=== PATIENT | male | born 1950 | race Caucasian/White ===

== ENCOUNTER 2016-08-14 15:16 | Day surgery (SDC) | payer MEDICARE ==
[~2016-08-14] VITALS: Ht 175.3 cm; Wt 102.0 kg
[~2016-08-14 15:16] MED LIST: ASPI-973 PO; ATOR40TA69 PO; CHOL200025 PO; CLOP75TA28 PO; GLUC1500 PO; INSU100C8 SUBQ; INSU100I13 SUBQ; LISI10TA PO; METO-272 PO; MULT1CAP33 PO; OMEG-38 PO; PSYL1PAC10 PO; RIFA300C4 PO; augmentin
[2016-08-14 15:20] VITALS: BP 145/78; PULSE 72; RESP 18; O2SAT 99
[2016-08-14] MEDS ORDERED: Vancomycin Inj 1,500 MG in 0.9% Sodium Chloride 500 ML IV ONE (16:00)
--- NOTE | 2016-08-14 18:25 | NUR ---
first dose IVAB pt arrived post picc placement IV vanco infused without problem pt to receive future infusions via home services baseline labs drawn on 08/12 pt with hx of picc line and home infusions; aware of plan of care and denies questions or concerns
== END 2016-08-14 23:59 | disposition home or self-care (01) ==
LOC: MOCO 15:16
PROVIDERS: ATTEND Podiatrist
DX: M86.172 Other acute osteomyelitis, left ankle and foot (principal)
CPT/HCPCS: 96365; J3370; J7040

== ENCOUNTER 2017-01-09 17:35 | Inpatient (IN) | payer MEDICARE, OTHER ==
[~2017-01-09] VITALS: Ht 175.3 cm; Wt 92.6 kg
[2017-01-09] MEDS ORDERED: Alum-Mag Hydrox-Simeth 30 mL Suspension PO PRN (17:50)
[2017-01-09] MEDS ORDERED: Ondansetron 2 mg/mL 2 mL Inj IVPUSH PRN (17:50)
[2017-01-09] MEDS ORDERED: Polyethylene Glycol (PEG) 17 Gm Powder PO PRN (17:50)
[2017-01-09] MEDS ORDERED: Glucose 40% Oral Gel 15 Gm Tube PO PRN (17:50)
[2017-01-09] MEDS ORDERED: Piper-Tazo 3.375 Gm/50 mL D5W Minibag Plus - Q8H over 4 hrs IV ONE ×2 (18:05)
--- NOTE | 2017-01-09 18:05 | PCM.HPMED ---
Subjective Date of Service Jan 09, 2017 Primary Provider: Admitting Physician: Yari Aviles DPM Primary Care Physician: Maria Diana DO Attending Physician: Yari Aviles DPM Admit Status: Direct Admit, Admit to [facility] Team, Non-Telemetry Chief Complaint: Left foot gangrene and soft tissue infection History of Present Illness: This is a pleasant 66-year-old male with a history of diabetes who presents with an extensive soft tissue infection of the left foot. He has been fighting this for 2 years since he initially stepped on a nail which punctured his big toe. He has been on intermittent antibiotics and had multiple debridements in the past with his collaborative teacher. Ultimately this infection is spread across the entire span of the foot. Today he has had more redness laterally. He does have gangrene of the great toe and second toe from his report. He was seen by his collaborative teacher today who recommended hospitalization for an emergent transmetatarsal amputation of the left foot. He does not have peripheral arterial disease and has good transcutaneous oximetry. He denies fevers or chills. His collaborative teacher did request Zosyn in the interim. He does have some pain associated with this. He does have diabetes mellitus U, insulin-dependent which has been under reasonable control. No nausea. He has been somewhat constipated for 3 days. He did have global symptoms of myalgias and fatigue several days ago with see off for infection. These symptoms improved. Review of Systems: All else reviewed and otherwise negative except as noted on history of present illness Allergies Coded Allergies: No Known Allergies (Verified , 01/09/17) Home Medications Lantus 25 at bedtime, lispro 20-25 before meals PMH Diabetes mellitus 2 Hypertension Left foot soft tissue skin infection, as well as osteomyelitis involving the first and second digit. Surgical History Multiple surgeries on his feet including a great toe amputation on the right foot. Multiple debridements on the left foot. Family History Negative for diabetes Social History Occupation: retired Hx Alcohol Use: No Hx Substance Use: No Smoking Status: Never Smoker Living Arrangement: Alone Exam Exam Oriented 3. No distress. Fluent speech. Normal affect. Normal skull. Normal nose and ears. Anicteric sclera, symmetric pupils Oropharynx is unremarkable, no facial droop. Neck is supple, normal thyroid. No adenopathy. Lungs are clear, normal effort rate. Heart is regular without murmur gallop or rub. Abdomen soft, nondistended or tender. Extremities are free of pedal edema. Good radial and pedal pulses.. The left foot is wrapped up to the ankle. There is no erythema above the ankle. The foot is left wrapped as it was examined and wrapped by his collaborative teacher this morning. Skin is free of rash, lesions. No petechiae or ecchymosis. Joints are grossly normal. Cranial nerves are grossly normal. Motor strength is normal in all extremities. Normal muscular tone. Assessment & Plan #. Left foot soft tissue infection as well as osteomyelitis, worsening. POA. The plan is to initiate Zosyn every 8 hours, nothing by mouth after midnight and proceed to a transmetatarsal amputation of the left foot tomorrow morning #. Diabetes mellitus 2, POA. We will decrease his Lantus to 15, nothing by mouth from midnight and use correctional lispro. We will also fluid resuscitated with saline. We will check a CBC and CMP. #. Hypertension, POA. Resume usual medications after medication reconciliation. Patient is admitted in observation status, anticipated length of stable for 2 nights. He is full resuscitation DVT prophylaxis Pain Evaluation: Adequate Pain Control Resuscitation Status: CPR: Attempt Resuscitation Time spent 40 minutes Giovanni Macdonald MD Jan 09, 2017 18:05
[2017-01-09 18:59] LABS: BASOPHILS % (AUTO) 0.1 % (0-3); EOSINOPHILS % (AUTO) 0.9 % (0-5); MONOCYTES % (AUTO) 6.6 % (4-12); Mean Corpuscular Hemoglobin 26.9 pg (27.0-35.0); Mean Corpuscular Volume 83.8 fL (81-100); NEUTROPHILS % (AUTO) 80.4 % (40-74); Platelet Count 464 bil/L (150-400)
[2017-01-09] MEDS: 0.9% Sodium Chloride 1,000 ML IV SCH (21:18)
[2017-01-09] MEDS: Insulin GLARgine 100 Unit/mL Syringe SUBQ SCH (21:36)
[2017-01-09] MEDS: Insulin LISPRO 300 Unit/3 mL Inj SUBQ SCH (21:38)
[2017-01-09] MEDS: Heparin 5,000 Unit/mL Inj SUBQ SCH (21:43)
[2017-01-10] VITALS (13 sets, daily range): BP systolic 109–148; BP diastolic 48–77; PULSE 67–79; RESP 16–22; O2SAT 97–99
[2017-01-10] MEDS: Heparin 5,000 Unit/mL Inj SUBQ SCH ×3 (00:30→17:13)
--- NOTE | 2017-01-10 02:59 | NUR ---
Admit to Room 1012 Per patient, patient arrived to Room 1012 at approximately 1700. No note from previous shift. Admission interventions not recorded. Admission completed. Patient cooperative with assessment . States no pain on left foot. VSS. Call light within reach. Care continues.
[2017-01-10] MEDS: 0.9% Sodium Chloride 1,000 ML IV SCH ×3 (03:48→23:48)
[2017-01-10] MEDS: Lactated Ringer's 1,000 ML IV SCH ×2 (05:00→08:53)
[2017-01-10] MEDS: Piperacillin-Tazo 3.375 Gm Inj 3.375 GM in Dextrose 5% Minibag Plus 50 ML IV SCH ×3 (05:11→20:58)
[2017-01-10] MEDS: Insulin LISPRO 300 Unit/3 mL Inj SUBQ SCH ×4 (08:12→20:59)
--- NOTE | 2017-01-10 09:01 | NUR ---
To OR Report given to ALEX lopez. Patient on room air. Able to transfer onto [facility] from bed. Antibiotic still running and went with patient to OR. Patient denies pain this AM.
[2017-01-10] MEDS ORDERED: EPHEDrine Sulfate 50 mg/mL Inj IVPUSH PRN (09:15)
[2017-01-10] MEDS ORDERED: Phenylephrine 10,000 mCg/mL Inj IVPUSH PRN (09:15)
[2017-01-10] MEDS ORDERED: Lactated Ringer's 1,000 ML IV SCH (09:15)
[2017-01-10] MEDS ORDERED: Lidocaine 2%-Epi 1:100,000 20 mL Inj INFILTRATE ONE (09:15)
[2017-01-10] MEDS ORDERED: Dexamethasone 4 mg/mL Inj IVPUSH PRN (09:15)
[2017-01-10] MEDS ORDERED: Lactated Ringer's 500 ML IV PRN (09:15)
[2017-01-10] MEDS ORDERED: MetoCLOpramide 5 mg/mL 2 mL Inj IVPUSH PRN (09:15)
[2017-01-10] MEDS ORDERED: Ondansetron 2 mg/mL 2 mL Inj IVPUSH PRN (09:15)
[2017-01-10] MEDS ORDERED: HYDROmorphone 1 mg/mL Inj IVPUSH PRN (09:15)
[2017-01-10] MEDS ORDERED: fentaNYL-PF 50 mCg/mL 2 mL Inj IVPUSH PRN (09:15)
--- NOTE | 2017-01-10 09:15 | PCM.HPANE ---
Patient Data Date of Service: Jan 10, 2017 (0845) Surgeon Admitting Provider:Bladimir Lloyd MD Attending Provider:Bladimir Lloyd MD Primary Care Physician:Maria Diana DO Other Provider:Reyes Kamara Anesthesia Reason for Visit Left Foot Gangrene, Diabetes Ht/WT & BMI Body Mass Index Allergies Coded Allergies: No Known Allergies (Verified , 01/09/17) Past Anesthesia History Anesthesia History: Denies:: Abnormal Airway, Anesthesia Reactions, Difficult Intubation, Fam Anesthesia Reaction (mother was "weird" after anes) Diabetes History Hx Diabetes?: Yes Glycemic Control: Insulin Dependent Current Bedside Blood Glucose: 223 MRSA MRSA: Yes (MSSA) Medications Blood Thinner: Aspirin, Plavix Reported Medications Aspirin 81 Mg Gnyums65 Mg PO BID Ref 0 04/04/15 Lisinopril 10 Mg Idulwr82 Mg PO DAILY 30 Days Ref 0 04/04/15 Multivitamin (Multivitamins)1 Each Capsule1 Each PO DAILY 04/04/15 [place]-3/Dha/Epa/Fish Oil (Fish Oil 1,000 mg Softgel)1 Each Capsule1 Each PO DAILY 04/04/15 Psyllium Seed (with Sugar) (Metamucil Packet)1 Each Packet1 Each PO DAILY PRN For Constipation 04/04/15 Cholecalciferol (Vitamin D3) (Vitamin D3)2,000 Unit Tablet2,000 Unit PO DAILY 01/25/15 Insulin Aspart (NovoLOG U100 Insulin Vial)100 U/Ml U10-15 SUBQ TIDWM #1 VIAL Ref 0 01/25/15 Metoprolol Succinate ER 50 Mg Tab.er.24h50 Mg PO DAILY 30 Days Ref 0 01/25/15 Insulin Glargine (Lantus U100 Solostar Insulin Pen)100 Unit/1 Ml Insuln.pen25 Units SUBQ HS #1 PENINJ Ref 0 01/25/15 Glucosamine HCl 1,500 Mg Tablet1,500 Mg PO DAILY 01/25/15 Clopidogrel 75 Mg Dvvsav05 Mg PO DAILY 30 Days Ref 0 01/25/15 Atorvastatin Calcium 40 Mg Bfcaim64 Mg PO DAILY #30 TABLET Ref 0 01/25/15 Discontinued Reported Medications [augmentin] No Conflict CheckUnknown Dose DAILY 07/17/16 Rifampin 300 Mg Cptnkof228 Mg PO BID 10 Days 08/17/15 History History of ENT Problems?: No HEENT History: Positive for:: Cataracts Glaucoma Denies:: Abnormal Airway Difficult Intubation Dysphagia Hearing Problem Sinus Problem TMJ Denture Type: None Teeth Condition: Within Normal Limits Hx of Heart Problems?: Yes Cardiovascular History: Denies:: AICD Abdominal Aortic Aneurism Atrial Fibrillation Cardiac Surgery Chest Pain Congestive Heart Failure Edema Heart Murmur Hypertension Irregular Heartbeat Pacemaker Rheumatic Fever Thrombophlebitis Other Cardiac History: Right ankle artery Hx of Respiratory Problem?: No Respiratory History: Denies:: Asthma COPD Chest Surgery Dyspnea Emphysema Hemoptysis Oxygen Administration Pneumonia Tuberculosis Use of C-PAP Machine Hx Neurologic Problems?: No Neurological History: Denies:: Alzheimer's Disease CVA Dementia Dizziness Headaches Multiple Sclerosis Parkinson's Disease Seizures Hx of GI Problems?: No Hx of Problems?: No Genitourinary History: Denies:: HX of Hemodialysis Kidney Stones Urinary Tract Infection HX of Peritoneal Dialysis: No Male Hx: Denies:: Prostate Problems Scrotal Mass Testicular Surgery Skin History: Positive for:: History Skin Disorders? (current admission problem left foot wound) Denies:: Pressure Ulcers Hx Musculoskeletal Problems?: No Musculoskeletal History: Denies:: Back Injury Joint Replacement Musculoskeletal Trauma Systemic Lupus Hx of Psycho/Social Problems?: No Psycho Social History: Denies:: Anxiety Bipolar Disorder Hx Depression Suicide Attempt Hx Surgeries?: Yes Hx Any Other Health Problems?: Yes Other History: Positive for:: Hospitalization (2014) Denies:: Cancer Thyroid Disease History Blood Transfusions: Positive for:: Accept Blood Products? Blood Transfusions Denies:: Blood Transfuse Reaction Hx Diabetes: YesBedside Blood Glucose: 223 Occupation: retired Hx Alcohol Use: NoHx Substance Use: No Smoking Status: Never Smoker Have You Smoked inLast 12 mo: No Stop/Bang Treated for Sleep Apnea?: No Do You Have a CPAP Machine?: No S-Snoring: Do You Snore Loudly: No T-Tired: feel tired, fatigued: No O-Obsered: Observed not breath: No P-Blood Pressure: treated: No B- Body Mass Index > 35 kg/m2: No A- Age over 50: Yes N- Neck Large Circumference: No G- Gender Male: Yes SEBASTIÁN Total Score: 1 Risk Assessment Category Category 1A: Patient has history of documented sleep apnea, and HAS NOT received any narcotic, sedative or anesthesia administration during this stay. Category 1B: Patient has history of documented sleep apnea, and HAS received any narcotic , sedative or anesthesia administration during this stay Category 2: Patient has SUSPECTED Obstructive Sleep Apnea, and HAS received any narcotic , sedative or anesthesia administration during this stay. Category 3: Patient has SUSPECTED Obstructive Sleep Apnea and HAS NOT received narcotic, sedative or anesthesia administration during this stay. Category 4: Outpatient in Procedural Areas with known sleep apnea or who screen positive for High Risk via the STOP/BANG questionnaire. Exam Exam Vital Signs Vital Signs Date Time Temp Pulse Resp B/P Pulse Ox O2 Delivery O2 Flow Rate FiO2 01/10/17 05:38 36.7 68 20 129/70 98 Room Air General Appearance: Alert, Oriented X3, Cooperative, No Acute Distress HEENT/AIRWAY: MP 2 Lungs: Clear to Auscultation Heart: Exam Unremarkable Meds/Labs/Diagnostics Admission Meds Current Medications Heparin Sodium (Porcine) 5000 unit 5,000 unit Q8 SUBQ Last administered on 01/09 21:43; Start 01/09/17 at 17:50 Sodium Chloride 1,000 ml @ 100 mls/hr Q10H IV Last administered on 01/09/17 21:18; Start 01/09/17 at 17:48 Piperacillin Sod/ Tazobactam Sod/ Dextrose/Water (Zosyn 3.375 Gm Inj/D5W Minibag Plus) 50 ml @ 12.5 mls/hr Q8H IV Last administered on 01/10/17 05:11 ; Start 01/10/17 at 05:00 Insulin Glargine (Lantus Insulin Inj) 15 unit HS SUBQ Last administered on 01/09 21:36; Start 01/09/17 at 21:00 Insulin Human Lispro Nutritional Dose to be given pr... [facility] SUBQ Last administered on 01/10/17 08:12; Start 01/09/17 at 22:00 Piperacillin Sod/ Tazobactam Sod/ Dextrose/Water (Zosyn 3.375 Gm Inj/D5W Minibag Plus) 50 ml @ 100 mls/hr ONCE ONCE IV Last administered on 01/09/17 21:18; Start 01/09/17 at 18:05; Stop 01/09/17 at 18:34; Status DC Bedside Blood Glucose: 223 Labs Test 6/23/17 18:56 White Blood Count 13.4th/mm3 (3.8-10.1) Red Blood Count 3.46mil/mm3 (4.40-5.80) Hemoglobin 9.3g/dL (13.8-17.2) Hematocrit 29.0% (41.0-50.0) Mean Corpuscular Volume 83.8fL (81-100) Mean Corpuscular Hemoglobin 26.9pg (27.0-35.0) Mean Corpuscular Hemoglobin Concent 32.1% (32.0-37.0) Red Cell Distribution Width 13.3% (12.3-15.4) Platelet Count 464bil/L (150-400) Neutrophils (%) (Auto) 80.4% (40-74) Lymphocytes (%) (Auto) 11.8% (14-46) Monocytes (%) (Auto) 6.6% (4-12) Eosinophils (%) (Auto) 0.9% (0-5) Basophils (%) (Auto) 0.1% (0-3) Sodium Level 127mEq/L (134-144) Potassium Level 6.0mEq/L (3.5-5.2) Chloride Level 92mEq/L (97-108) Carbon Dioxide Level 21mmol/L (18-29) Blood Urea Nitrogen 31mg/dL (8-27) Creatinine 1.41mg/dL (0.76-1.27) Estimat Glomerular Filtration Rate 53mL/min (>59) Glucose Level 340mg/dL (60-99) Hemoglobin A1c 9.5% (4.8-5.6) Calcium Level 8.9mg/dL (8.5-10.1) Total Bilirubin 0.2mg/dL (0.0-1.2) Aspartate Amino Transf (AST/SGOT) 11U/L (0-50) Alanine Aminotransferase (ALT/SGPT) 9U/L (0-44) Alkaline Phosphatase 152U/L (25-160) Total Protein 7.4g/dL (6.4-8.4) Albumin 3.6g/dL (3.4-5.0) Plan Impression Patient chart reviewed, patient interviewed and anesthestic plan with risks, benefits, and alternatives discussed, and informed consent obtained. ASA Physical Status: ASA3 Severe Disease Anesthetic Plan: GA Bene/Risks/Altern/Consents: Yes HP Complete Prior to Induction: Yes Diego Mathur MD Jan 10, 2017 09:15
--- NOTE | 2017-01-10 10:24 | PCM.PODPO ---
Podiatry Operative Report Date of Service: Jan 10, 2017 (0845) Date of Service Jan 10, 2017 Pre Operative Diagnosis Left forefoot gangrene Post Operative Diagnosis Left forefoot gangrene, left dorsal forefoot abscess Procedure Partial transmetatarsal amputation, left foot, packed open. Stage 1 of 2 Surgeon Surgeon: Yari Aviles DPM Assistants: None Indication for Procedure Progressive infection of the left forefoot, gangrene, limb salvage effort. Findings Extensive soft tissue necrosis extending into the metatarsophalangeal joints 4 and 5, dorsal abscess in the area of the third and fourth metatarsals. Nonunion of the third metatarsal stress fracture. Nonviable second toe with completely occluded dorsal vessels. Moderate bleeding, including venous and arterial at the level of the amputation. Details of Procedure The patient was identified in the preoperative holding area and brought back to the operating room and placed on the operating table in supine position. The timeout protocol was completed. The patient's name and site of surgery were confirmed. Gen. anesthesia was initiated and the left foot was prepped and draped in usual aseptic manner. Local block was administered using lidocaine plain 1%, and incisional lidocaine with epinephrine 2%. Initial hemostasis was difficult. Calf tourniquet at 250 mmHg and increased after 20 minutes to 275 mmHg, it was employed for just over 30 minutes total, but the vessels at the level of the calf were not compressible enough to achieve full hemostasis throughout the case. Additional elevation and cold irrigation were used to minimize blood loss. The existing plantar gangrenous ulceration was excised with approximately 0.5 cm margins down to a bleeding base, which included excising metatarsal heads 4 and 5, at the level of the intended transmetatarsal amputation. Arterial bleeding was encountered at this level. Cautery was used to achieve hemostasis. Further excision of the third metatarsal heads was done quite simply as it was still from the rest of the metatarsal. Periosteal reaction was encountered at this level. The bone callus was still soft and easily removed with a rongeur. During this portion of the procedure, I encountered a large dorsal abscess and expressed approximately 3 mL of purulent material and clotted blood, found a few thrombosed vessels, and excised all necrotic appearing tissue from that unexpected abscessed portion. At this point , I irrigated the wound with cold normal saline, cauterized all bleeding vessels , and directed my attention to the medial aspect of the foot. The medial hallux ulceration was excised through skin and subcutaneous tissue down to the first metatarsal. I explored the entire open area, completed the amputation of the second and third toes, found further purulence within the second toe at the level of previous proximal phalangeal resection. I irrigated that portion as well. At this point I decided to leave this partial amputation packed for 24 hours and allow the tissue to recover before completing the transmetatarsal amputation. The final level of amputation today included the second toe at the metatarsophalangeal level, the third toe at the level of the third metatarsal neck, the fourth and fifth toes and metatarsals. The remaining bony procedure to be done is amputation of the left great toe at the level of the first metatarsal and completing the second metatarsal amputation. The packing consisted of half-inch plain Nu Gauze, saline moistened gauze, ABDs pad, Kerlix , 4 inch Kwaku wrap. This will remain closed until tomorrow. The patient will be brought back to the operating room for completion of the amputation tomorrow. A CBC with differential will be drawn today and again preoperatively tomorrow. The patient was weaned off of general anesthesia and taken to the PACU with vital signs stable and the vascular status to the left foot appearing intact for healing. Grafts, Implants: None Complications There were no periprocedural complications identified. Condition Stable Anesthetic Administered: GA Drains: None Catheters: None Output, Estimated Blood Loss: 100 (ml) Blood Admin during surgery: No Surgical Cast or Splint: None Surgical Specimen Removed: Yes Specimen sent to Pathology: Yes Surgical Specimen description: All excised tissue, complete digits, partial bone from the left foot was sent to pathology Post Operative Plan Initially, I was hoping to be able to close this transmetatarsal amputation primarily with a complex flap. Encountering 2 abscessed areas and 2 areas of thrombosed vessels in the dorsal area of the flap, as well as areas of chronic scarring that rendered the skin less elastic then I needed for closure, I found it safer for the patient to pack the wound open for 24 hours and bring him back to the operating room tomorrow to complete the transmetatarsal amputation with primary closure and drain placement. This is a complex limb salvage effort. Yari Aviles DPM Jan 10, 2017 10:24
--- NOTE | 2017-01-10 11:22 | NUR ---
Back from OR Patient able to transfer to bed from [facility] with minimal assistance. On room air. Denies chest pain, SOB, and N/V. Also denies pain in RLE. Call light within reach. Lunch ordered. Plan on white board for surgery again tomorrow.
[2017-01-10] MEDS ORDERED: Lidocaine PF 1% 30 mL Inj ONE (12:33)
[2017-01-10] MEDS ORDERED: fentaNYL-PF 50 mCg/mL 2 mL Inj ONE (12:33)
[2017-01-10] MEDS ORDERED: Propofol 10,000 mCg/mL 20 mL Inj ONE (12:33)
[2017-01-10] MEDS ORDERED: Ondansetron 2 mg/mL 2 mL Inj ONE (12:33)
[2017-01-10 14:34] LABS: BASOPHILS % (AUTO) 0.3 % (0-3); MONOCYTES % (AUTO) 5.7 % (4-12); Mean Corpuscular Hemoglobin 26.2 pg (27.0-35.0); Mean Corpuscular Volume 83.4 fL (81-100); NEUTROPHILS % (AUTO) 70.3 % (40-74); Platelet Count 466 bil/L (150-400)
[2017-01-10] MEDS: HYDROcodone-APAP 5-325 mg Tablet PO PRN ×2 (17:34→21:48)
[2017-01-10] MEDS: Insulin GLARgine 100 Unit/mL Syringe SUBQ SCH (20:58)
--- NOTE | 2017-01-10 22:29 | PCM.PNMED ---
Subjective Date of Service Jan 10, 2017 Subjective The patient has no new complaints. He was seen postoperatively and is little bit discouraged by his current situation. He has no other new complaints. Exam Vital Signs Vital Sign - Last Date Time Temp Pulse Resp B/P Pulse Ox O2 Delivery O2 Flow Rate FiO2 01/10/17 19:36 36.8 72 18 119/67 98 Room Air Intake and Output 01/09/17 01/09/17 01/10/17 Cumulative From/Thru 15:00 23:00 07:00 01/10/17 02:54 - 01/10/17 06:35 Intake Total 1196 ml 1196 ml Output Total 2400 ml 2400 ml Balance -1204 ml -1204 ml Intake Oral 400 ml 400 ml IV Total 796 ml 796 ml Output Urine Total 2400 ml 2400 ml Exam General: Patient appears slightly pale and discouraged. HEENT: Head is atraumatic and normocephalic. Eyes: Pupils are equally round and reactive to light and accommodation. Extraocular muscles are intact. Sclera are white, anicteric. Subconjunctival mucosa is pale. Ears and nose are unremarkable. Oropharynx: There is no mucosal lesions, there is no thrush, there is no pharyngitis. Mucosa is pale. Neck: Is supple, there are no nodes, or masses or tenderness. Chest: Is clear to auscultation and percussion. There are no rales, rhonchi, wheezes or rubs. Heart: Rate, rhythm is regular. There is no murmur, rub or gallop. Abdomen: Good bowel sounds are present. Abdomen is soft, nontender, no organomegaly or masses were appreciated. Extremities: The left lower extremity is in a postoperative wrap. This was clean dry and intact with no strike through bleeding. There are only 3 toes on the right foot the great toe and first toe are missing. Amputation sites are unremarkable. Neurologic: There are no focal neurological deficits. Cranial nerves II through XII are intact. There are no sensory or motor deficits. Psychiatric: Patients mood is calm and shows no sign of agitation. Genital: Deferred Rectal: Deferred Lab and Diagnostics Result Diagram: 01/10/17 1415 01/10/17 1415 Microbiology Left foot OR cultures are pending. Assessment & Plan As per Dr. Alex Macdonald's H&P: "This is a pleasant 66-year-old male with a history of diabetes who presents with an extensive soft tissue infection of the left foot. He has been fighting this for 2 years since he initially stepped on a nail which punctured his big toe. He has been on intermittent antibiotics and had multiple debridements in the past with his new client banking services clerk. Ultimately this infection is spread across the entire span of the foot. Today he has had more redness laterally. He does have gangrene of the great toe and second toe from his report. He was seen by his new client banking services clerk today who recommended hospitalization for an emergent transmetatarsal amputation of the left foot." The patient was admitted to the hospital service for further evaluation and treatment recommendations. #. Left foot soft tissue infection as well as osteomyelitis, worsening him a present at the time of admission. Active - Continue Zosyn every 8 hours, - Patient had drainage of abscesses in the left foot today with our cultures obtained. - Nothing by mouth after midnight and proceed to a transmetatarsal amputation of the left foot tomorrow morning. - Discussed with Dr. Aviles #. Diabetes mellitus 2, present at the time of admission. - We will continue Lantus to 15, nothing by mouth from midnight and use correctional lispro. - We will continue with IV fluids. - We will check a CBC and CMP and magnesium level in a.m. #. Hypertension, present time of admission. Active. - Continue usual medications as at home Disposition: Patient to have a transmetatarsal amputation in a.m. and will likely need a PICC line and infectious disease consultation on Thursday for management of long-term IV antibiotics. Pain Evaluation: Adequate Pain Control VTE Mechanical Devices: Intermittant Pneumatic CD Resuscitation Status: CPR: Attempt Resuscitation Bladimir Lloyd MD Jan 10, 2017 22:29
[2017-01-11] VITALS (10 sets, daily range): BP systolic 133–155; BP diastolic 57–74; PULSE 74–99; RESP 13–18; O2SAT 94–99
[2017-01-11] MEDS: Heparin 5,000 Unit/mL Inj SUBQ SCH ×3 (00:26→16:33)
--- NOTE | 2017-01-11 01:51 | NUR ---
Pain Patient A&OX3 and pleasant this evening. At approx 2140 patient begins to complain of pain in left foot, and rates it a 3/10. 2 Tabs norco given for pain, and upon reassessment patient was sleeping and appeared comfortable. Has had no further complaints of pain at this time. Will continue to monitor and continue Q1 hour checks.
[2017-01-11] MEDS: 0.9% Sodium Chloride 1,000 ML IV SCH ×2 (05:01→20:16)
[2017-01-11] MEDS: Piperacillin-Tazo 3.375 Gm Inj 3.375 GM in Dextrose 5% Minibag Plus 50 ML IV SCH ×3 (05:02→21:18)
[2017-01-11 06:18] LABS: BASOPHILS % (AUTO) 0.3 % (0-3); EOSINOPHILS % (AUTO) 1.5 % (0-5); MONOCYTES % (AUTO) 6.7 % (4-12); Mean Corpuscular Hemoglobin 26.8 pg (27.0-35.0); Mean Corpuscular Volume 85.4 fL (81-100); NEUTROPHILS % (AUTO) 64.8 % (40-74); Platelet Count 431 bil/L (150-400)
[2017-01-11] MEDS ORDERED: Ondansetron 2 mg/mL 2 mL Inj ONE (07:04)
[2017-01-11] MEDS ORDERED: Propofol 10,000 mCg/mL 20 mL Inj ONE (07:04)
[2017-01-11] MEDS ORDERED: Ketamine 10 mg/mL 20 mL Inj ONE (07:04)
[2017-01-11] MEDS ORDERED: fentaNYL-PF 50 mCg/mL 2 mL Inj ONE (07:04)
[2017-01-11] MEDS ORDERED: Lactated Ringer's 1,000 ML IV ONE (07:45)
[2017-01-11] MEDS: Insulin LISPRO 300 Unit/3 mL Inj SUBQ SCH ×5 (08:00→21:58)
--- NOTE | 2017-01-11 08:38 | NUR ---
Patient to OR 0836 Pt to OR; A&Ox3, c/o burning in L foot 09/26, states "I can wait til after OR for pain medication, tolerable now." VSS, BG 223, NPO since midnight, IV NS 100/hr running, SL now, RA. Report given to Alex in OR; per him hold SQ Heparin and Insulin this AM. Chart with pt when left the floor.
[2017-01-11] MEDS ORDERED: Lidocaine 1%/Epi 1:100,000 30 mL MDV INFILTRATE ONE (08:45)
[2017-01-11] MEDS ORDERED: Lactated Ringer's 500 ML IV PRN (09:03)
[2017-01-11] MEDS ORDERED: Lactated Ringer's 1,000 ML IV SCH (09:03)
[2017-01-11] MEDS ORDERED: Dexamethasone 4 mg/mL Inj IVPUSH PRN (09:05)
[2017-01-11] MEDS ORDERED: Phenylephrine 10,000 mCg/mL Inj IVPUSH PRN (09:05)
[2017-01-11] MEDS ORDERED: Ondansetron 2 mg/mL 2 mL Inj IVPUSH PRN (09:05)
[2017-01-11] MEDS ORDERED: EPHEDrine Sulfate 50 mg/mL Inj IVPUSH PRN (09:05)
[2017-01-11] MEDS ORDERED: MetoCLOpramide 5 mg/mL 2 mL Inj IVPUSH PRN (09:05)
[2017-01-11] MEDS ORDERED: fentaNYL-PF 50 mCg/mL 2 mL Inj IVPUSH PRN (09:05)
[2017-01-11] MEDS ORDERED: hydrALAZINE 20 mg/mL Inj IVPUSH PRN (09:05)
[2017-01-11] MEDS ORDERED: HYDROmorphone 1 mg/mL Inj IVPUSH PRN (09:05)
[2017-01-11] MEDS ORDERED: Labetalol 5 mg/mL 4 mL Inj IV PRN (09:05)
[2017-01-11] MEDS ORDERED: Insulin LISPRO 300 Unit/3 mL Inj SUBQ ONE (10:45)
--- NOTE | 2017-01-11 10:59 | PCM.PODPO ---
Podiatry Operative Report Date of Service: Jan 11, 2017 (0845) Date of Service Jan 11, 2017 Pre Operative Diagnosis Left forefoot gangrene, open amputation stump Post Operative Diagnosis Left forefoot gangrene, open and viable partial transmetatarsal amputation stump after Stage 1 procedure yesterday. Left foot equinus s/p transmetatarsal amputation. Procedure Completed transmetatarsal amputation, left foot, primary closure. Percutaneous Achilles tenotomy. Surgeon Surgeon: Yari Aviles DPM Assistants: None Indication for Procedure Limb salvage effort. Partial transmetatarsal amputation performed yesterday. Remaining 1st and 2nd metatarsals resected today. Primarily closed. Residual equinus deformity treated with percutaneous Achilles tenotomy, left lower extremity. Findings Extensive soft tissue necrosis extending into the metatarsophalangeal joints 4 and 5, dorsal abscess in the area of the third and fourth metatarsals. Nonunion of the third metatarsal stress fracture. Nonviable second toe with completely occluded dorsal vessels. Moderate bleeding, including venous and arterial at the level of the amputation. Details of Procedure The patient was identified in the preoperative holding area and brought back to the operating room and placed on the operating table in supine position. The timeout protocol was completed. The patient's name and site of surgery were confirmed. Gen. anesthesia was initiated and the left foot was prepped and draped in usual aseptic manner. Local block was administered using lidocaine with epinephrine 1%. Thigh tourniquet was inflated at 275 mmHg and employed for just about 80 minutes total with good hemostasis. The open left foot wound appeared healthy with edematous interstitial changes at the flap edge dorsally and plantar-centrally. There was no purulence and no new necrosis. Some early granulation tissue was evident. The hallux was disarticulated from the remaining partially amputated 1st ray without difficulty, full thickness with a #10 scalpel. The soft tissue was reflected off of the remaining metatarsal and the saw blade used to transect the metatarsal at a healthier appearing level. Fragmented bone was removed with a rongeur. The 2nd and 3rd metatarsals were transected to match the level of the 4th and 5th done yesterday. The bone and soft tissue were sent to pathology with resected margins to be examined for active osteomyelitis. Obvious transected vessels were cauterized. A gradual, lateral to medial flap remodeling was performed using Iris scissors and forceps, gradually closing each section with vertical deep 2-0 Prolene to eliminate space. Simple sutures with 3-0 Prolene were placed along the skin margin. A TLS drain was placed within the closed flap with a dorsal egress. The forefoot was found to be at an equinus orientation to the ankle, even with the knee flexed and foot manually dorsiflexed. I had consented the patient for an Achilles tendon lengthening for positional reasons of this very fragile forefoot flap. I proceeded with a percutaneous Achilles tendon lengthening through the traditional 3 incisions, using a #11 blade. There was a larger skin incision as a result on the most proximal portion, which was closed with 4-0 Prolene. The foot and Achilles tendon were dressed with Juan's silk, saline moistened Kerlix, ABD pad, and a well padded posterior 5" Orthoglass splint. The tourniquet was released and some mild drainage noted through the drain. No excessive bleeding was encountered. Adequate compression was applied through the dressing, including an ROLY wrap to hold the splint in place. The patient was weaned off of general anesthesia and taken to the PACU with vital signs stable and the vascular status to the left foot appearing intact for healing. Grafts, Implants: None Complications There were no periprocedural complications identified. Condition Stable Anesthetic Administered: GA Drains: None Catheters: None Output, Estimated Blood Loss: 10 (ml) Blood Admin during surgery: No Surgical Cast or Splint: None Surgical Specimen Removed: Yes Specimen sent to Pathology: Yes Surgical Specimen description: All excised tissue, complete digits, partial bone from the left foot was sent to pathology Post Operative Plan Nonweightbearing on left lower extremity, bedrest for at least 24 hours. PT to train with walker and knee scooter. Patient expected to have a knee scooter by end of week. Continue IV antibiotics while hospitalized, then one week post discharge on PO antibiotics. We will follow labs. Resection margin appeared clean and bone free of infection. We will await pathology for resection margins. Yari Aviles DPM Jan 11, 2017 10:59
--- NOTE | 2017-01-11 10:59 | PCM.ANEP1 ---
Post Anesthesia PACU Phase 1 Assessment Vital Signs Vital Signs Date Time Temp Pulse Resp B/P Pulse Ox O2 Delivery O2 Flow Rate FiO2 01/11/17 10:45 89 15 137/59 98 Room Air 01/11/17 10:36 36.4 96 13 155/66 97 Room Air 01/11/17 07:50 36.8 78 16 144/70 98 Room Air 01/11/17 05:30 36.6 74 16 143/70 98 Room Air Anesthetic Administered: GA Level of Alertness: Awake, talking KRAMER's with Equal Strength: Yes Pain: No Pain Scale Score: 3 Nausea or Vomiting: No CV Function & Hydration Stable: Yes Airway Device: Oxygen Delivery: Room Air Lungs: Clear to Auscultation PACU Phase 2 Assessment Complications: No Follow up Care: N/A Patient Instructions Provided: N/A Terry Pizano MD Jan 11, 2017 10:59
--- NOTE | 2017-01-11 10:59 | PCM.HPANE ---
Patient Data Date of Service: Jan 11, 2017 Surgeon Admitting Provider:Bladimir Lloyd MD Attending Provider:Bladimir Lloyd MD Primary Care Physician:Maria Diana DO Other Provider:Reyes Kamara Anesthesia Reason for Visit Left Foot Gangrene, Diabetes Ht/WT & BMI Body Mass Index Allergies Coded Allergies: No Known Allergies (Verified , 01/09/17) Past Anesthesia History Anesthesia History: Denies:: Abnormal Airway, Anesthesia Reactions, Difficult Intubation, Fam Anesthesia Reaction (mother was "weird" after anes) Diabetes History Hx Diabetes?: Yes Glycemic Control: Insulin Dependent Current Bedside Blood Glucose: 282 MRSA MRSA: Yes (MSSA) Medications Blood Thinner: Aspirin, Plavix Home Meds Incl Beta Aditya: No Reported Medications Aspirin 81 Mg [id number] Mg PO BID Ref 0 04/04/15 Lisinopril 10 Mg [id number] Mg PO DAILY 30 Days Ref 0 04/04/15 Multivitamin (Multivitamins)1 Each Capsule1 Each PO DAILY 04/04/15 Rena Lara-3/Dha/Epa/Fish Oil (Fish Oil 1,000 mg Softgel)1 Each Capsule1 Each PO DAILY 04/04/15 Psyllium Seed (with Sugar) (Metamucil Packet)1 Each Packet1 Each PO DAILY PRN For Constipation 04/04/15 Cholecalciferol (Vitamin D3) (Vitamin D3)2,000 Unit Tablet2,000 Unit PO DAILY 01/25/15 Insulin Aspart (NovoLOG U100 Insulin Vial)100 U/Ml U10-15 SUBQ TIDWM #1 VIAL Ref 0 01/25/15 Metoprolol Succinate ER 50 Mg Tab.er.24h50 Mg PO DAILY 30 Days Ref 0 01/25/15 Insulin Glargine (Lantus U100 Solostar Insulin Pen)100 Unit/1 Ml Insuln.pen25 Units SUBQ HS #1 PENINJ Ref 0 01/25/15 Glucosamine HCl 1,500 Mg Tablet1,500 Mg PO DAILY 01/25/15 Clopidogrel 75 Mg Pwkuir79 Mg PO DAILY 30 Days Ref 0 01/25/15 Atorvastatin Calcium 40 Mg Vqlmhz69 Mg PO DAILY #30 TABLET Ref 0 01/25/15 Discontinued Reported Medications [augmentin] No Conflict CheckUnknown Dose DAILY 07/17/16 Rifampin 300 Mg [id number] Mg PO BID 10 Days 1/29/16 History History of ENT Problems?: No HEENT History: Positive for:: Cataracts Glaucoma Denies:: Abnormal Airway Difficult Intubation Dysphagia Hearing Problem Sinus Problem TMJ Denture Type: None Teeth Condition: Within Normal Limits Hx of Heart Problems?: Yes Cardiovascular History: Positive for:: Coronary Artery Disease Denies:: AICD Abdominal Aortic Aneurism Atrial Fibrillation Cardiac Surgery Chest Pain Congestive Heart Failure Edema Heart Murmur Hypertension Irregular Heartbeat Pacemaker Rheumatic Fever Thrombophlebitis Other Cardiac History: Right ankle artery Hx of Respiratory Problem?: No Respiratory History: Denies:: Asthma COPD Chest Surgery Dyspnea Emphysema Hemoptysis Oxygen Administration Pneumonia Tuberculosis Use of C-PAP Machine Hx Neurologic Problems?: No Neurological History: Denies:: Alzheimer's Disease CVA Dementia Dizziness Headaches Multiple Sclerosis Parkinson's Disease Seizures Hx of GI Problems?: No Hx of Problems?: No Genitourinary History: Denies:: HX of Hemodialysis Kidney Stones Urinary Tract Infection HX of Peritoneal Dialysis: No Male Hx: Denies:: Prostate Problems Scrotal Mass Testicular Surgery Skin History: Positive for:: History Skin Disorders? (current admission problem left foot wound) Denies:: Pressure Ulcers Hx Musculoskeletal Problems?: No Musculoskeletal History: Denies:: Back Injury Joint Replacement Musculoskeletal Trauma Systemic Lupus Hx of Psycho/Social Problems?: No Psycho Social History: Denies:: Anxiety Bipolar Disorder Hx Depression Suicide Attempt Hx Surgeries?: Yes Hx Any Other Health Problems?: Yes Other History: Positive for:: Hospitalization (2014) Denies:: Cancer Thyroid Disease History Blood Transfusions: Positive for:: Accept Blood Products? Blood Transfusions Denies:: Blood Transfuse Reaction Hx Diabetes: YesBedside Blood Glucose: 282 Occupation: retired Hx Alcohol Use: NoHx Substance Use: No Smoking Status: Never Smoker Have You Smoked inLast 12 mo: No Stop/Bang Treated for Sleep Apnea?: No Do You Have a CPAP Machine?: No S-Snoring: Do You Snore Loudly: No T-Tired: feel tired, fatigued: No O-Obsered: Observed not breath: No P-Blood Pressure: treated: No B- Body Mass Index > 35 kg/m2: No A- Age over 50: Yes N- Neck Large Circumference: No G- Gender Male: Yes SEBASTIÁN Total Score: 1 SEBASTIÁN Category 1: Yes Risk Assessment Category Category 1A: Patient has history of documented sleep apnea, and HAS NOT received any narcotic, sedative or anesthesia administration during this stay. Category 1B: Patient has history of documented sleep apnea, and HAS received any narcotic , sedative or anesthesia administration during this stay Category 2: Patient has SUSPECTED Obstructive Sleep Apnea, and HAS received any narcotic , sedative or anesthesia administration during this stay. Category 3: Patient has SUSPECTED Obstructive Sleep Apnea and HAS NOT received narcotic, sedative or anesthesia administration during this stay. Category 4: Outpatient in Procedural Areas with known sleep apnea or who screen positive for High Risk via the STOP/BANG questionnaire. Exam Exam Vital Signs Vital Signs Date Time Temp Pulse Resp B/P Pulse Ox O2 Delivery O2 Flow Rate FiO2 01/11/17 10:45 89 15 137/59 98 Room Air 01/11/17 10:36 36.4 96 13 155/66 97 Room Air 01/11/17 07:50 36.8 78 16 144/70 98 Room Air 01/11/17 05:30 36.6 74 16 143/70 98 Room Air General Appearance: Alert, Oriented X3, Cooperative, No Acute Distress HEENT/AIRWAY: MP 2 Lungs: Clear to Auscultation Heart: Exam Unremarkable Meds/Labs/Diagnostics Admission Meds Current Medications Lidocaine/ Epinephrine 30 ml 30 ml STK-MED ONCE INFILTRATE Last administered on 01/11/17 08:45; Start 01/11/17 at 08:45; Stop 01/11/17 at 09:31; Status DC Lactated Ringer's (Lr) 1,000 ml @ ud STK-MED ONCE IV Last administered on 01/11 07:45; Start 01/11/17 at 07:45; Stop 01/11/17 at 09:31; Status DC Bedside Blood Glucose: 282 Labs Test 01/09/17 18:56 01/11/17 06:00 01/11/17 09:07 Hemoglobin A1c 9.5% (4.8-5.6) White Blood Count 7.8th/mm3 (3.8-10.1) Red Blood Count 3.21mil/mm3 (4.40-5.80) Hemoglobin 8.6g/dL (13.8-17.2) Hematocrit 27.4% (41.0-50.0) Mean Corpuscular Volume 85.4fL (81-100) Mean Corpuscular Hemoglobin 26.8pg (27.0-35.0) Mean Corpuscular Hemoglobin Concent 31.4% (32.0-37.0) Red Cell Distribution Width 13.3% (12.3-15.4) Platelet Count 431bil/L (150-400) Neutrophils (%) (Auto) 64.8% (40-74) Lymphocytes (%) (Auto) 26.6% (14-46) Monocytes (%) (Auto) 6.7% (4-12) Eosinophils (%) (Auto) 1.5% (0-5) Basophils (%) (Auto) 0.3% (0-3) Sodium Level 135mEq/L (134-144) Potassium Level 5.0mEq/L (3.5-5.2) Chloride Level 98mEq/L (97-108) Carbon Dioxide Level 23mmol/L (18-29) Blood Urea Nitrogen 18mg/dL (8-27) Creatinine 1.14mg/dL (0.76-1.27) Estimat Glomerular Filtration Rate 68mL/min (>59) Glucose Level 210mg/dL (60-99) Calcium Level 8.2mg/dL (8.5-10.1) Magnesium Level 2.0mg/dL (1.6-2.6) Total Bilirubin 0.2mg/dL (0.0-1.2) Aspartate Amino Transf (AST/SGOT) 10U/L (0-50) Alanine Aminotransferase (ALT/SGPT) 8U/L (0-44) Alkaline Phosphatase 130U/L (25-160) Total Protein 6.1g/dL (6.4-8.4) Albumin 3.3g/dL (3.4-5.0) Plan Impression Patient chart reviewed, patient interviewed and anesthestic plan with risks, benefits, and alternatives discussed, and informed consent obtained. NPO per Anesth. Guidelines: Yes ASA Physical Status: ASA2 Mod Systemic Disease Anesthetic Plan: GA Bene/Risks/Altern/Consents: Yes HP Complete Prior to Induction: Yes Terry Pizano MD Jan 11, 2017 10:59
[2017-01-11] MEDS: HYDROcodone-APAP 5-325 mg Tablet PO PRN ×3 (12:20→22:02)
--- NOTE | 2017-01-11 12:24 | NUR ---
Pt Return from PACU 1140AM Pt return from PACU, A&O to self and situation but states "I feel really out of it today. Today hit me hard." VSS, L foot elevated with splint, bruno wrap and TLS drain in place; IV Zosyn and LR infusing, BG 284. Pt c/o pain later -01/26; 2 PO Hydrocodone given with lunch. Pt sitting up eating lunch with family in the room at lunch time. Will continue to monitor with frequent rounds.
--- NOTE | 2017-01-11 17:01 | CONS ---
[address] [address] CONSULTATION REPORT PATIENT: ERYN MARTINEZ : 1950 MR#: [id number] ADMIT: 01/09/2017 JOB ID: [id number] DATE OF SERVICE: 01/11/[address] Alon Lloyd for this timely consult. REASON FOR CONSULTATION: Severe left forefoot infection status post TMA. HISTORY OF PRESENT ILLNESS: The patient is a 66-year-old type 1 diabetic with a history of recurrent foot infection, so I know very well from a long complicated hospital stay and followup with a right great toe diabetic foot infection two years ago. The conclusion of that was that the patient lost his great toe, but after a prolonged period of aggressive antibiotic and surgical interventions, he was able to salvage his foot and come away with a reasonably good result. Unfortunately, late last year, the patient stepped on a nail, injuring his left forefoot. This resulted in an ongoing struggle with a series of very debilitating infections over the last nine months. The patient has had numerous organisms cultured from that area and has undergone multiple debridements as well as prolonged courses of antibiotics including even a course of IV antibiotics given through a home infusion company. The patient reports that during these many months of struggling with his left forefoot, it is sometimes almost healed only to then relapse. He was finally admitted on January 09 with a progressive erythema and tenderness of the left foot including gangrene of the great toe and 1st and 2nd toes. Over the weekend, Dr. Aviles of podiatry has taken him to the operating room twice. During the initial surgery, she started the first part of the TMA and encountered a great deal of pus and abscess. She then went back this morning and basically completed this surgery with a complete TMA which she closed. She states on her operative note that at the end of surgery all apparent infected tissue had been resolved, and she thought the margins were free of infection. She suggested in her note that a short course of IV antibiotics be followed by prolonged antibiotics with plan to discharge later this week. Dr. Lloyd has invited me to comment on the antibiotics and help to follow the patient after discharge. The patient tells me that in the days and weeks leading up to admission, he had intermittent fairly low-grade fevers as well as occasional subtle never severe chills and minimal night sweats which would come and go. This was not accompanied by any significant pulmonary or GI symptomatology. He notes that in the days leading up to Thursday's admission though his foot got much more red and inflamed, especially the 1st and 2nd toes and overall he started to feel worse but was never nearly as toxic as he was with this more major infection on the right foot two years ago. PAST MEDICAL HISTORY: 1. Type 1 diabetes mellitus diagnosed at age 20 which is now 46 years ago. a. Recurrent diet diabetic foot infection. b. Neuropathy. c. Retinopathy. 2. Coronary artery disease. 3. 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 4. Status post left TMA in December 2016. SOCIAL HISTORY: The patient is a nonsmoker, nondrinker who has worked as a glass primarily in the local area. He attended [employer]. FAMILY HISTORY: Noncontributory in that no 1st or 2nd-degree relatives had tuberculosis. REVIEW OF SYSTEMS: Patient has no headache or visual complaint. No sore throat. No significant stiff neck. No cough, shortness of breath, chest pain, nausea, vomiting, or diarrhea. He has had some intermittent mild fevers, chills and sweats. He has had some pain in his left foot even though he has a significant neuropathy there as he was developing gangrene of the 1st and 2nd toes. The right foot has been relatively stable ever since the great toe was removed though he does have decreased sensation. Remainder of the review of systems negative. PHYSICAL EXAMINATION: The patient is afebrile. Temp 36.7, he has been afebrile since admission, pulse 91, respiratory rate 18, blood pressure 152/71, saturating 99% on room air. He is in no acute distress. Examination the head: No trauma. Eyes without conjunctivitis. Oral cavity without thrush or hairy leukoplakia. Neck completely supple. No adenopathy. Lungs clear. Back is straight and without tenderness. Cardiac tones: Regular rate and rhythm without murmur. Abdomen: Soft and nontender without organomegaly. He does not have a Borden catheter nor does he have suprapubic tenderness. He has intact popliteal pulses. His right foot is missing the great toe, but otherwise it is well healed and without evidence of inflammation or skin breakdown. He has peripheral pulses in the right foot. The left foot is in a large postop dressing as he just left surgery a few hours ago. There is evidence that he has undergone a TMA, however. The left leg above the bulky dressing on the foot and ankle looks unremarkable. Neurologically, the patient has peripheral neuropathy which is evident in his right foot but, otherwise, he can move everything and appears quite well muscled and without defect. LABORATORIES: Include white count 7800. His white count was 13,000 when he came in two days ago. Normal diff now. He did have a left shift. Creatinine 1.14. LFTs are normal. Albumin 3.3. Urinalysis was just ordered this morning and is not back yet. Hep B and hep C were negative a couple of years ago, not repeated. Micro results: The culture done in yesterday's surgery from the great toe is pending. A Gram stain was not helpful and we await the final culture. In reviewing his cultures for the last two years from his diabetic feet, he has grown Serratia, MRSA, Enterococcus, Proteus and Prevotella. The last growth of MRSA was in June 2016 and that was from the same foot. There is no current imaging. IMPRESSION: This is an unfortunate 58-year-old gentleman with type 1 diabetes who a couple of years ago managed to more or less beat a severe right foot infection, though he did suffer the loss of his great toe, but no other structures. He now has been battling for several months an even more significant infection involving his left forefoot which has now led to a transmetatarsal amputation that was just completed this morning. Gross abscess material was encounter during yesterday's step one of this procedure and was completely resolved surgically during today's step two, according to Dr. Aviles. We await the cultures from yesterday's surgery. RECOMMENDATIONS: 1. The patient has been started on Zosyn which I think is an appropriate 1st step. 2. I was considering adding empiric methicillin-resistant Staphylococcus aureus therapy, but as of this point we have no evidence that MRSA is still present even though it was about six months ago. I think given the fact that he has contraindications to linezolid and no compelling evidence yet of a recurrent MRSA infection, will hold off and see what develops with respect to the cultures. 3. I agree with Dr. Aviles that if most of the infection or all of it has been resected, we could probably treat for a week or two with IV and then transition to a more prolonged course of oral therapy. It is even possible we could truncate the IV a little bit more depending on what we discover in the cultures. Thank you very much for this consult. Also note that I will be checking a MRSA screen.
--- NOTE | 2017-01-11 18:11 | NUR ---
BP Medications/Pain Per pt he normally takes home BP medication; slightly hypertensive today but stable. C/O post op burning/pain LLE 7-8/10 twinges of pain tolerable at 3/10; 2 PO Percocet given for pain. Per pt, effective. Will continue to monitor with frequent rounds.
[2017-01-11] MEDS: Insulin GLARgine 100 Unit/mL Syringe SUBQ SCH (21:21)
--- NOTE | 2017-01-11 22:22 | PCM.PNMED ---
Subjective Date of Service Jan 11, 2017 Subjective The patient was seen postoperatively and he was a little frustrated that it was taking a little "too long" to recover from anesthesia. He has no other new complaints other than shooting pains in his left foot. Exam Vital Signs Vital Sign - Last Date Time Temp Pulse Resp B/P Pulse Ox O2 Delivery O2 Flow Rate FiO2 01/11/17 21:03 36.6 97 18 133/64 97 Room Air Intake and Output 01/10/17 01/10/17 01/11/17 Cumulative From/Thru 15:00 23:00 07:00 01/10/17 02:54 - 01/11/17 06:24 Intake Total 500 ml 760 ml 1198 ml 3654 ml Output Total 200 ml 700 ml 1575 ml 4875 ml Balance 300 ml 60 ml -377 ml -1221 ml Intake Oral 520 ml 400 ml 1320 ml IV Total 500 ml 240 ml 798 ml 2334 ml Output Urine Total 700 ml 1575 ml 4675 ml Estimated Blood Loss 200 ml 200 ml Exam General: Patient appears slightly pale and still slightly sedated postoperatively. Otherwise he appears comfortable HEENT: Head is atraumatic and normocephalic. Eyes: Pupils are equally round and reactive to light and accommodation. Extraocular muscles are intact. Sclera are white, anicteric. Subconjunctival mucosa is pale. Ears and nose are unremarkable. Oropharynx: There is no mucosal lesions, there is no thrush, there is no pharyngitis. Mucosa is pale. Neck: Is supple, there are no nodes, or masses or tenderness. Chest: Is clear to auscultation and percussion. There are no rales, rhonchi, wheezes or rubs. Heart: Rate, rhythm is regular. There is no murmur, rub or gallop. Abdomen: Good bowel sounds are present. Abdomen is soft, nontender, no organomegaly or masses were appreciated. Extremities: The left lower extremity is in a postoperative wrap. This was clean dry and intact with no strike through bleeding. There are only 3 toes on the right foot the great toe and first toe are missing. Amputation sites are unremarkable. Neurologic: There are no focal neurological deficits. Cranial nerves II through XII are intact. There are no sensory or motor deficits. Psychiatric: Patients mood is calm and shows no sign of agitation. Genital: Deferred Rectal: Deferred Lab and Diagnostics Result Diagram: 01/11/17 0600 01/11/17 06 Microbiology Left foot OR cultures are pending. Assessment & Plan As per Dr. Alex Macdonald's H&P: "This is a pleasant 66-year-old male with a history of diabetes who presents with an extensive soft tissue infection of the left foot. He has been fighting this for 2 years since he initially stepped on a nail which punctured his big toe. He has been on intermittent antibiotics and had multiple debridements in the past with his food photographer. Ultimately this infection is spread across the entire span of the foot. Today he has had more redness laterally. He does have gangrene of the great toe and second toe from his report. He was seen by his food photographer today who recommended hospitalization for an emergent transmetatarsal amputation of the left foot." The patient was admitted to the hospital service for further evaluation and treatment recommendations. #. Left foot soft tissue infection as well as osteomyelitis, present at the time of admission. Active - Continue Zosyn every 8 hours, - Patient had drainage of abscesses in the left foot is today with operating room cultures obtained. Patient underwent a left transmetatarsal amputation today. - I have consulted Dr. Jolly of infectious disease and appreciate his time and expertise. We will follow his recommendations. #. Diabetes mellitus 2, present at the time of admission. - We will continue Lantus at 15 units, as patient, has not had much to eat, and will use correctional lispro. - We will continue with IV fluids. - We will check a CBC and CMP and magnesium level in a.m. #. Hypertension, present time of admission. Active. - Continue usual medications as at home Disposition: Patient to continue on IV antibiotics for now. Suspect patient will be able to be discharged in next 48 hours. Pain Evaluation: Adequate Pain Control VTE Mechanical Devices: Intermittant Pneumatic CD Resuscitation Status: CPR: Attempt Resuscitation Bladimir Lloyd MD Jan 11, 2017 22:22 Bladimir Lloyd MD Jan 11, 2017 22:22
[2017-01-12] MEDS: Heparin 5,000 Unit/mL Inj SUBQ SCH ×3 (01:13→17:45)
[2017-01-12] MEDS: HYDROcodone-APAP 5-325 mg Tablet PO PRN ×4 (03:17→22:16)
--- NOTE | 2017-01-12 03:53 | NUR ---
Pain On initial assessment, patient complained of left foot pain 5/10 on pain scale with intermittent twinges of pain ranging from 8-9/10 . PO pain medication administered. Patient voiced concerned about the lack of having a bm but would like "nature to take it's course". Encouraged fluids intake. VSS. Call light within reach. Care continues.
[2017-01-12 04:28] VITALS: BP 150/67; PULSE 78; RESP 16; O2SAT 97
[2017-01-12 05:40] LABS: BASOPHILS % (AUTO) 0.4 % (0-3); EOSINOPHILS % (AUTO) 1.9 % (0-5); MONOCYTES % (AUTO) 6.1 % (4-12); Mean Corpuscular Hemoglobin 26.9 pg (27.0-35.0); Mean Corpuscular Volume 85.9 fL (81-100); NEUTROPHILS % (AUTO) 64.7 % (40-74); Platelet Count 413 bil/L (150-400)
[2017-01-12] MEDS: Piperacillin-Tazo 3.375 Gm Inj 3.375 GM in Dextrose 5% Minibag Plus 50 ML IV SCH ×3 (06:01→22:07)
[2017-01-12] MEDS: 0.9% Sodium Chloride 1,000 ML IV SCH ×2 (06:06→15:48)
[2017-01-12] MEDS: Insulin LISPRO 300 Unit/3 mL Inj SUBQ SCH ×4 (08:55→22:05)
[2017-01-12 09:27] VITALS: BP 147/70; PULSE 86; RESP 18; O2SAT 96
[2017-01-12 13:01] VITALS: BP 170/65; PULSE 89; RESP 18; O2SAT 98
--- NOTE | 2017-01-12 14:40 | NUR ---
Social Work: Initial Assessment D: EMR reviewed. Pt is a 66 y/o male admitted for left foot gangrene, diabetes per H&P. SW met with pt at bedside to conduct initial assessment. Pt was alert and oriented x3. SW explained role and wrote phone number on white board. Pt's insurance is [employer]. PCP is Maria Diana DO. Pt gave verbal consent to contact friend, Saranya Dyer, for discharge planning. Pt does not have LTC insurance. Pt has VA benefits but is not service connect. Pt has hx with [facility]. Pt does not have hx at a SNF. Pt owns crutches and a FWW. Pt does not own or use any other DME. Pt stated he would be receiving a knee scooter on loan from wound care per Jacqueline at the wound care center. Pt is independent with ADLs. Pt drives. Pt is independent at baseline. Pt lives at home alone in a single-story home with 1-step to enter in [place]. Pt states his brother or friend will provide transport home via POV when pt is medically stable. Per MD in AM multi-disciplinary rounds, pt will likely need long-term IVABX. SW to follow for ID recommendations and determine if pt will receive IVABX at [facility] (if Q24) or if pt will need home IVABX. A: Pt who is independent at baseline who will likely need rn long term care IVABX at discharge. SW to follow to determine IVABX type/dose and determine home IVABX or IVABX at [facility] (if Q24) P: Pt states his brother or friend will provide transport home via POV when pt is medically stable. Per MD in AM multi-disciplinary rounds, pt will likely need long-term IVABX. SW to follow for ID recommendations and determine if pt will receive IVABX at [facility] (if Q24) or if pt will need home IVABX. CELI Andrew Addendum: 01/12/17 at 1454 by ALEXIA PATEL SS Amended: Links added.
--- NOTE | 2017-01-12 15:37 | NUR ---
Evaluation completed. Please go to "Notes" then click on "Assessments and Notes" (bottom left corner of screen). Then select appropriate discipline tab on top of screen.
--- NOTE | 2017-01-12 18:06 | PROG NOTE ---
[address] [address] PROGRESS NOTE PATIENT: ERYN MARTINEZ : 1950 MR#: [id number] ADMIT: 01/09/2017 JOB ID: [id number] DATE: 01/12/2017 REASON FOR FOLLOW UP: Gangrenous left forefoot, status post TMA on January 10 INTERVAL HISTORY: The patient reports over the last 48 hours, she has felt much better. No fevers. No chills. No sweats. No cough, shortness of breath, nausea, vomiting, diarrhea. His left foot is wrapped in a very extensive dressing with a drain and will be re-evaluated tomorrow by Podiatry. PHYSICAL EXAMINATION: Reveals an afebrile gentleman, no acute distress. Temp 36.6, pulse 89, respiratory rate 18, blood pressure 170/65. He is saturating well on room air. He is awake, alert, conversational. Lungs clear. Cardiac tones: No new murmur. Abdomen: Benign. Left foot in large dressing. LABORATORIES: Include white count 7800, completely normal diff. Creatinine 0.88, much improved from 1.41 just a couple days ago. Albumin a bit low, 3.1. Micro studies from surgery growing just a Proteus in very scant quantities with susceptibilities to follow. Recall that on prior cultures, he has grown MRSA during [place] week last year as well as Serratia in a culture from August. IMPRESSION: This is an unfortunate diabetic gentleman who required eventually a two-stage transmetatarsal amputation of his left forefoot. He is now quite stable. The customer service professional believes that she has removed all the infected bone and soft tissue, and we are now awaiting the final susceptibilities from the laboratory to decide on course and duration of antibiotics at discharge. We hope we can use oral antibiotics depending on what the final identification of these organisms is. RECOMMENDATIONS: 1. Continue with Zosyn as the sole antibiotic today. 2. We await final antibiotic recommendations tomorrow.
--- NOTE | 2017-01-12 18:52 | NUR ---
Pain- Patient has complained of minimal foot pain. Patient worked with PT and did not complain of increased discomfort with activity. Dressing has remained dry and intact with slight amt. of drainage in TLS drain.
--- NOTE | 2017-01-12 19:22 | PCM.PNPOD ---
Subjective Date of Service: Jan 12, 2017 Visit Information: Reason for Visit Left Foot Gangrene, Diabetes Date of Admission: Jan 09, 2017 at 17:36 Postop day 1: Transmetatarsal amputation and Achilles tendon lengthening, left lower extremity Postop General: No Complaints, No Shortness of Breath, No Chest Pain Gastrointestinal: Good Appetite Pain Management: PO Postop Activity: Ambulates with Assist Device (with PT) Objective Vital Sign - Last Date Time Temp Pulse Resp B/P Pulse Ox O2 Delivery O2 Flow Rate FiO2 01/12/17 13:01 36.6 89 18 170/65 98 Room Air Intake and Output 01/11/17 01/11/17 01/12/17 Cumulative From/Thru 15:00 23:00 07:00 01/10/17 02:54 - 01/12/17 06:23 Intake Total 400 ml 2145 ml 1202 ml 7401 ml Output Total 10 ml 1453 ml 7 ml 6345 ml Balance 390 ml 692 ml 1195 ml 1056 ml Intake Oral 1420 ml 2740 ml IV Total 400 ml 725 ml 1202 ml 4661 ml Output Urine Total 1450 ml 6125 ml Drainage Total 3 ml 7 ml 10 ml Estimated Blood Loss 10 ml 210 ml # Bowel Movements 0 0 Result Diagram: 01/12/17 0503 01/12/17 0503 Lab Test 01/09/17 18:56 01/11/17 09:07 01/12/17 05:03 Hemoglobin A1c 9.5% (4.8-5.6) White Blood Count 7.8th/mm3 (3.8-10.1) Red Blood Count 2.97mil/mm3 (4.40-5.80) Hemoglobin 8.0g/dL (13.8-17.2) Hematocrit 25.5% (41.0-50.0) Mean Corpuscular Volume 85.9fL (81-100) Mean Corpuscular Hemoglobin 26.9pg (27.0-35.0) Mean Corpuscular Hemoglobin Concent 31.4% (32.0-37.0) Red Cell Distribution Width 13.0% (12.3-15.4) Platelet Count 413bil/L (150-400) Neutrophils (%) (Auto) 64.7% (40-74) Lymphocytes (%) (Auto) 26.6% (14-46) Monocytes (%) (Auto) 6.1% (4-12) Eosinophils (%) (Auto) 1.9% (0-5) Basophils (%) (Auto) 0.4% (0-3) Sodium Level 137mEq/L (134-144) Potassium Level 4.7mEq/L (3.5-5.2) Chloride Level 101mEq/L (97-108) Carbon Dioxide Level 24mmol/L (18-29) Blood Urea Nitrogen 12mg/dL (8-27) Creatinine 0.88mg/dL (0.76-1.27) Estimat Glomerular Filtration Rate 92mL/min (>59) Glucose Level 202mg/dL (60-99) Calcium Level 8.3mg/dL (8.5-10.1) Magnesium Level 2.0mg/dL (1.6-2.6) Total Bilirubin 0.2mg/dL (0.0-1.2) Aspartate Amino Transf (AST/SGOT) 11U/L (0-50) Alanine Aminotransferase (ALT/SGPT) 8U/L (0-44) Alkaline Phosphatase 125U/L (25-160) Total Protein 5.9g/dL (6.4-8.4) Albumin 3.1g/dL (3.4-5.0) Exam General: Alert, Oriented X3, Cooperative, No Acute Distress Lungs: Clear to Auscultation Cardiac: Regular Rate/Rhythm Surgical Cast or Splint: Well-padded Short Leg Splint (The posterior splint is in good shape and positioning. No strikethrough, no posterior knee or calf pain. ) Assessment & Plan Problems: (1) Gangrene of foot Plan: Patient's TMA dressing and drain will be removed tomorrow. I saw only 7ml of drainage in TLS tube. l He is doing well. I anticipate discharge home tomorrow. His brother will rent him a knee scooter. He is already [facility]. I will view the foot in the morning and contact Dr. Jolly to discuss possible IV antibiotic coverage outpatient. Status: Acute ICD Code: I96 (2) Diabetes mellitus type 1 Qualifiers: Diabetes mellitus complication status: with neurologic complications Diabetes mellitus complication detail: with polyneuropathy Qualified Code: E10.42 - Type 1 diabetes mellitus with diabetic polyneuropathy Status: Chronic ICD Code: E10.9 Yari Aviles DPM Jan 12, 2017 19:22
[2017-01-12 19:56] VITALS: BP 167/68; PULSE 94; RESP 20; O2SAT 97
[2017-01-12] MEDS: Insulin GLARgine 100 Unit/mL Syringe SUBQ SCH (22:02)
--- NOTE | 2017-01-12 23:10 | PCM.PNMED ---
Subjective Date of Service Jan 12, 2017 Subjective The patient is feeling much better today. He is in good spirits today. He states that he had shooting pains during the night last night in his left foot. These pains have essentially dissipated today. Patient has no new complaints. Exam Vital Signs Vital Sign - Last Date Time Temp Pulse Resp B/P Pulse Ox O2 Delivery O2 Flow Rate FiO2 01/12/17 19:56 36.7 94 20 167/68 97 Room Air Intake and Output 01/11/17 01/11/17 01/12/17 Cumulative From/Thru 15:00 23:00 07:00 01/10/17 02:54 - 01/12/17 06:23 Intake Total 400 ml 2145 ml 1202 ml 7401 ml Output Total 10 ml 1453 ml 7 ml 6345 ml Balance 390 ml 692 ml 1195 ml 1056 ml Intake Oral 1420 ml 2740 ml IV Total 400 ml 725 ml 1202 ml 4661 ml Output Urine Total 1450 ml 6125 ml Drainage Total 3 ml 7 ml 10 ml Estimated Blood Loss 10 ml 210 ml # Bowel Movements 0 0 Exam General: Patient appears less pale and more awake and alert, and in good spirits. HEENT: Head is atraumatic and normocephalic. Eyes: Pupils are equally round and reactive to light and accommodation. Extraocular muscles are intact. Sclera are white, anicteric. Subconjunctival mucosa is pale. Ears and nose are unremarkable. Oropharynx: There is no mucosal lesions, there is no thrush, there is no pharyngitis. Mucosa is pale. Neck: Is supple, there are no nodes, or masses or tenderness. Chest: Is clear to auscultation and percussion. There are no rales, rhonchi, wheezes or rubs. Heart: Rate, rhythm is regular. There is no murmur, rub or gallop. Abdomen: Good bowel sounds are present. Abdomen is soft, nontender, no organomegaly or masses were appreciated. Extremities: The left lower extremity is in a postoperative wrap. TLS drain is in place. The dressing was clean dry and intact with no strike through bleeding. There are only 3 toes on the right foot the great toe and first toe are missing. Amputation sites are unremarkable. Neurologic: There are no focal neurological deficits. Cranial nerves II through XII are intact. There are no sensory or motor deficits. Psychiatric: Patients mood is calm and shows no sign of agitation. Genital: Deferred Rectal: Deferred Lab and Diagnostics Result Diagram: 01/12/17 0503 01/12/17 0503 Microbiology Left foot OR cultures are pending. Assessment & Plan As per Dr. Alex Macdonald's H&P: "This is a pleasant 66-year-old male with a history of diabetes who presents with an extensive soft tissue infection of the left foot. He has been fighting this for 2 years since he initially stepped on a nail which punctured his big toe. He has been on intermittent antibiotics and had multiple debridements in the past with his senior engineer. Ultimately this infection is spread across the entire span of the foot. Today he has had more redness laterally. He does have gangrene of the great toe and second toe from his report. He was seen by his senior engineer today who recommended hospitalization for an emergent transmetatarsal amputation of the left foot." The patient was admitted to the hospital service for further evaluation and treatment recommendations. #. Left foot soft tissue infection as well as osteomyelitis, present at the time of admission. Active - Continue Zosyn every 8 hours, - Patient had drainage of abscesses in the left foot and is postop day # 2 from that operation, with operating room cultures obtained. Patient underwent a left transmetatarsal amputation and is postop day #1 from that operation.. - I have consulted Dr. Jolly of infectious disease and appreciate his time and expertise. We will follow his recommendations. - Discussed with Dr. Aviles today #. Diabetes mellitus 2, present at the time of admission. - We will continue Lantus at 15 units, as patient, has not had much to eat, and will use correctional lispro. - We will continue with IV fluids. - We will check a CBC and CMP and magnesium level in a.m. #. Hypertension, present time of admission. Active. - Continue usual medications as at home Disposition: Patient to continue on IV antibiotics for now. Suspect patient will be able to be discharged in next 48 hours. Pain Evaluation: Adequate Pain Control VTE Prophylaxis: Sub-Q Heparin (Unfractionated) Resuscitation Status: CPR: Attempt Resuscitation Bladimir Lloyd MD Jan 12, 2017 23:10
[2017-01-13 00:59] VITALS: BP 158/80; PULSE 78; RESP 20; O2SAT 98
[2017-01-13] MEDS: 0.9% Sodium Chloride 1,000 ML IV SCH ×3 (01:48→22:43)
[2017-01-13] MEDS: Heparin 5,000 Unit/mL Inj SUBQ SCH ×3 (02:49→16:54)
[2017-01-13] MEDS: HYDROcodone-APAP 5-325 mg Tablet PO PRN ×4 (02:54→22:44)
--- NOTE | 2017-01-13 03:23 | NUR ---
Pain On initial assessment, patient stated pain5/10 on pain scale. Pain medication administered. Patient also stated pain was decreased from yesterday with less shooting pain. Dressing is CDI. TLS drainage has stayed at 6ml. VSS. Call light within reach. Care continues.
[2017-01-13 04:40] VITALS: BP 154/75; PULSE 76; RESP 20; O2SAT 99
[2017-01-13] MEDS: Piperacillin-Tazo 3.375 Gm Inj 3.375 GM in Dextrose 5% Minibag Plus 50 ML IV SCH ×3 (04:58→20:45)
[2017-01-13 06:15] LABS: BASOPHILS % (AUTO) 0.2 % (0-3); EOSINOPHILS % (AUTO) 2.2 % (0-5); MONOCYTES % (AUTO) 6.1 % (4-12); Mean Corpuscular Volume 84.8 fL (81-100); NEUTROPHILS % (AUTO) 64.8 % (40-74); Platelet Count 424 bil/L (150-400)
[2017-01-13] MEDS: Insulin LISPRO 300 Unit/3 mL Inj SUBQ SCH ×4 (08:34→22:46)
--- NOTE | 2017-01-13 11:11 | NUR ---
GRACIELA signed @ [id number]
[2017-01-13] MEDS: MeTOProlol XL 50 mg ER24 Tablet PO SCH (11:57)
[2017-01-13 12:22] VITALS: BP 155/70; PULSE 83; RESP 18; O2SAT 97
--- NOTE | 2017-01-13 14:41 | PCM.PNPOD ---
Subjective Date of Service: Jan 13, 2017 Visit Information: Reason for Visit Left Foot Gangrene, Diabetes Surgery/Surgery Date Transmetatarsal amputation, 01/11/2017 Post-Op Day # 2 Date of Admission: Jan 09, 2017 at 17:36 Postop General: No Complaints Gastrointestinal: Good Appetite Pain Management: PO Postop Activity: Ambulates with Assist Device Objective Vital Sign - Last Date Time Temp Pulse Resp B/P Pulse Ox O2 Delivery O2 Flow Rate FiO2 01/13/17 12:40 Room Air 01/13/17 12:22 36.4 83 18 155/70 97 Intake and Output 01/12/17 01/12/17 01/13/17 Cumulative From/Thru 15:00 23:00 07:00 01/10/17 02:54 - 01/13/17 06:23 Intake Total 1850 ml 521 ml 9772 ml Output Total 1100 ml 7445 ml Balance 750 ml 521 ml 2327 ml Intake Oral 1456 ml 4196 ml IV Total 394 ml 521 ml 5576 ml Output Urine Total 1100 ml 7225 ml Drainage Total 10 ml Estimated Blood Loss 210 ml # Bowel Movements 0 0 Result Diagram: 01/13/17 0519 01/13/17 0519 Lab Test 01/09/17 18:56 01/12/17 23:59 01/13/17 05:19 Hemoglobin A1c 9.5% (4.8-5.6) White Blood Count 9.5th/mm3 (3.8-10.1) Red Blood Count 2.96mil/mm3 (4.40-5.80) Hemoglobin 8.0g/dL (13.8-17.2) Hematocrit 25.1% (41.0-50.0) Mean Corpuscular Volume 84.8fL (81-100) Mean Corpuscular Hemoglobin 27.0pg (27.0-35.0) Mean Corpuscular Hemoglobin Concent 31.9% (32.0-37.0) Red Cell Distribution Width 13.2% (12.3-15.4) Platelet Count 424bil/L (150-400) Neutrophils (%) (Auto) 64.8% (40-74) Lymphocytes (%) (Auto) 26.5% (14-46) Monocytes (%) (Auto) 6.1% (4-12) Eosinophils (%) (Auto) 2.2% (0-5) Basophils (%) (Auto) 0.2% (0-3) Sodium Level 137mEq/L (134-144) Potassium Level 4.6mEq/L (3.5-5.2) Chloride Level 100mEq/L (97-108) Carbon Dioxide Level 26mmol/L (18-29) Blood Urea Nitrogen 11mg/dL (8-27) Creatinine 0.90mg/dL (0.76-1.27) Estimat Glomerular Filtration Rate 89mL/min (>59) Glucose Level 244mg/dL (60-99) Calcium Level 8.2mg/dL (8.5-10.1) Magnesium Level 2.0mg/dL (1.6-2.6) Total Bilirubin 0.2mg/dL (0.0-1.2) Aspartate Amino Transf (AST/SGOT) 9U/L (0-50) Alanine Aminotransferase (ALT/SGPT) 7U/L (0-44) Alkaline Phosphatase 123U/L (25-160) Total Protein 5.9g/dL (6.4-8.4) Albumin 3.1g/dL (3.4-5.0) Exam General: Alert, Oriented X3, Cooperative, No Acute Distress Lungs: Clear to Auscultation Cardiac: Regular Rate/Rhythm Podiatry WOUND : Wound Location/Description TMA stump incision is well coapted. Mild lateral maceration and moderate sanguineous drainage on dressing. Drain removed without difficulty. No erythema , no edema. No fluctuance. Dressing & Drainage Status: Dressing Removed Surgical Cast or Splint: Well-padded Short Leg Splint (The posterior splint is in good shape and positioning. No strikethrough, no posterior knee or calf pain. ) Assessment & Plan Problems: (1) Gangrene of foot Plan: Patient's TMA dressing and drain removed today. A new dressing was placed and posterior splint replaced and wrapped with an Kw[place] wrap. He is doing well. His dressing does not need to be replaced until Thursday. He is already set up for [facility]. Discharge will depend on Dr. Jolly's plan for IV antibiotics and outpatient setup. Discharge planning is in place for a knee scooter to be delivered to the hospital tomorrow for patient to use after discharge. Status: Acute ICD Code: I96 (2) Diabetes mellitus type 1 Qualifiers: Diabetes mellitus complication status: with neurologic complications Diabetes mellitus complication detail: with polyneuropathy Qualified Code: E10.42 - Type 1 diabetes mellitus with diabetic polyneuropathy Status: Chronic ICD Code: E10.9 VTE Prophylaxis: Sub-Q Heparin (Unfractionated) Yari Aviles DPM Jan 13, 2017 14:40
--- NOTE | 2017-01-13 15:48 | NUR ---
Activity- Patient needed alot of encouragement to get up out of bed to work with PT. She refused earlier because she has been wanting to sleep. She ambulated in hallway with walker and then wanted to lay back down. BP lying before walking was 155/77 and 108/71 when she stood up. HR-80-100's. Patient denied feeling dizzy when up and able to ambulate about 60 feet. Addendum: 01/13/17 at 1823 by MICKI MERCER RN wrong patient Gidoen Mercer RN
--- NOTE | 2017-01-13 15:59 | PROG NOTE ---
[address] [address] PROGRESS NOTE PATIENT: ERYN MARTINEZ : 1950 MR#: [id number] ADMIT: 01/09/2017 JOB ID: [id number] DATE: 01/13/2017 INFECTIOUS DISEASE FOLLOW UP NOTE: REASON FOR FOLLOWUP: Severe left diabetic foot infection with abscess and nonviable tissue now status post TMA. INTERVAL HISTORY: The patient has been feeling fine. No fevers. No chills. No sweats. No cough. No nausea, vomiting, and he wishes to be discharged. PHYSICAL EXAMINATION: Reveals an afebrile gentleman, temperature 36.4, pulse 83, respiratory rate 18, blood pressure 155/70. No acute distress. Saturating well on room air. Lungs clear. Cardiac tones without change. Abdomen benign. Left foot was undressed and redressed in a complex dressing today by Podiatry. Dr. Aviles of Podiatry felt his foot was healing very well and there was no evidence of ongoing infection or purulence. LABORATORY STUDIES: Include white count 9500, normal differential. Creatinine 0.9. LFTs normal. Micro called earlier today and said they thought this was a Pasteurella but then they called back and said it looks like a Proteus because it is a swarming gram-negative jerrica. IMPRESSION: Severe left diabetic foot infection status post TMA without significant residual infection, culture positive for Proteus. RECOMMENDATIONS: 1. I continue the patient on Zosyn overnight until we have final identification on susceptibilities of the organism. 2. Assuming this is a Proteus and it is susceptible, I would send the patient out on either levo or Cipro, probably with a short course of Flagyl in addition. The total duration of antibiotic therapy probably four weeks or so with the primary agent aimed at the Proteus for four weeks and Flagyl in case there is any anaerobic residual infection for just two weeks or so. 3. This case discussed with Dr. Lloyd as well as Dr. Aviles.
--- NOTE | 2017-01-13 18:28 | NUR ---
Activity- Patient ambulated with walker non weight bearing on left foot in hallway. Tolerated activity well. Dressing dry and intact. Pain controlled with oral analgesia. Patient hoping for discharge tomorrow.
[2017-01-13 19:36] VITALS: BP 137/62; PULSE 78; RESP 20; O2SAT 97
[2017-01-13] MEDS ORDERED: Insulin GLARgine 100 Unit/mL Syringe SUBQ SCH (21:00)
--- NOTE | 2017-01-13 21:30 | PCM.PNMED ---
Subjective Date of Service Jan 13, 2017 Subjective The patient continues to feel fairly well postoperatively. He is in good spirits. He has no new complaints. Exam Vital Signs Vital Sign - Last Date Time Temp Pulse Resp B/P Pulse Ox O2 Delivery O2 Flow Rate FiO2 01/13/17 19:36 37.0 78 20 137/62 97 Room Air Intake and Output 01/12/17 01/12/17 01/13/17 Cumulative From/Thru 15:00 23:00 07:00 01/10/17 02:54 - 01/13/17 06:23 Intake Total 1850 ml 521 ml 9772 ml Output Total 1100 ml 7445 ml Balance 750 ml 521 ml 2327 ml Intake Oral 1456 ml 4196 ml IV Total 394 ml 521 ml 5576 ml Output Urine Total 1100 ml 7225 ml Drainage Total 10 ml Estimated Blood Loss 210 ml # Bowel Movements 0 0 Exam General: Patient appears less pale and more awake and alert, and in good spirits. HEENT: Head is atraumatic and normocephalic. Eyes: Pupils are equally round and reactive to light and accommodation. Extraocular muscles are intact. Sclera are white, anicteric. Subconjunctival mucosa is pale. Ears and nose are unremarkable. Oropharynx: There is no mucosal lesions, there is no thrush, there is no pharyngitis. Mucosa is pale. Neck: Is supple, there are no nodes, or masses or tenderness. Chest: Is clear to auscultation and percussion. There are no rales, rhonchi, wheezes or rubs. Heart: Rate, rhythm is regular. There is no murmur, rub or gallop. Abdomen: Good bowel sounds are present. Abdomen is soft, nontender, no organomegaly or masses were appreciated. Extremities: The left lower extremity is in a postoperative wrap. TLS drain is in place. The dressing was clean dry and intact with no strike through bleeding. There are only 3 toes on the right foot the great toe and first toe are missing. Amputation sites are unremarkable. Neurologic: There are no focal neurological deficits. Cranial nerves II through XII are intact. There are no sensory or motor deficits. Psychiatric: Patients mood is calm and shows no sign of agitation. Genital: Deferred Rectal: Deferred Lab and Diagnostics Result Diagram: 01/13/1751801/13/17518 Microbiology Name: ERYN MARTINEZ Age/Sex: 66/M Attend Dr: Bladimir Lloyd Acct: [id number] Unit: [id number] Status: ADM [place] [facility] [place] Re01/09/[place] Disch: Specimen: [id number] Collected: 01/10/17-UNK Status: RES Req#: [id number] Received: 01/10/17 Source: TOE Sp Desc : Subm Dr: Yari Aviles DPM Ordered: CS & ANAC & GS Comments: Collected by Nurse/Unit? Y/N Y Comment: LEFT FOOT PARTIAL TRANSMETATARSAL AMPUTATION Procedure Result Verified Site Microbiology ANNA GS (GRAM STAIN) Final 01/10/17-1246 GRAM STAIN RESULT NO POLYS NO ORGANISMS SEEN ANNA CULT AEROBIC Preliminary 01/13/17-1059 PRELIMINARY ID GRAM NEG JESUS ALBERTO PROBABLE PROTEUS SPECIES ID AND SENS TO FOLLOW COLONY COUNT/QUANTITY SCANT GROWTH ANAEROBIC CULTURE Preliminary 01/13/17-1100 No ANAEROBES recovered at 48 hours hold for futher observation Assessment & Plan As per Dr. Alex Macdonald's H&P: "This is a pleasant 66-year-old male with a history of diabetes who presents with an extensive soft tissue infection of the left foot. He has been fighting this for 2 years since he initially stepped on a nail which punctured his big toe. He has been on intermittent antibiotics and had multiple debridements in the past with his body builder apprentice. Ultimately this infection is spread across the entire span of the foot. Today he has had more redness laterally. He does have gangrene of the great toe and second toe from his report. He was seen by his body builder apprentice today who recommended hospitalization for an emergent transmetatarsal amputation of the left foot." The patient was admitted to the hospital service for further evaluation and treatment recommendations. #. Left foot soft tissue infection as well as osteomyelitis, present at the time of admission. Active - Continue Zosyn every 8 hours, - Patient had drainage of abscesses in the left foot and is postop day #3 from that operation, with operating room cultures obtained. Patient underwent a left transmetatarsal amputation and is postop day #2 from that operation.. - I have consulted Dr. Jolly of infectious disease and appreciate his time and expertise. We will follow his recommendations. - Discussed with Dr. Aviles - We will restart home prescription with Plavix. #. Diabetes mellitus 2, present at the time of admission. - We will continue Lantus at 15 units, as patient, has not had much to eat, and will use correctional lispro. - We will continue with IV fluids. - We will check a CBC and CMP and magnesium level in a.m. #. Hypertension, present time of admission. Active. - Continue usual medications as at home, I have restarted them today Disposition: Patient to continue on IV antibiotics for now. Suspect patient will be able to be discharged in next 24-48 hours. Pain Evaluation: Adequate Pain Control VTE Prophylaxis: Sub-Q Heparin (Unfractionated) VTE Mechanical Devices: Intermittant Pneumatic CD Resuscitation Status: CPR: Attempt Resuscitation Bladimir Lloyd MD Jan 13, 2017 21:30
[2017-01-14] MEDS: Heparin 5,000 Unit/mL Inj SUBQ SCH ×2 (00:57→08:31)
--- NOTE | 2017-01-14 02:34 | NUR ---
Sleep Patient requested sleep be a priority, care bundled in response. Patient sleeping yet easily aroused. Denies CP, SOB, and abdominal discomfort. Bed in low position and call light within reach, intentional rounding. Will continue to monitor.
[2017-01-14 04:25] VITALS: BP 131/67; PULSE 64; RESP 18; O2SAT 99
[2017-01-14 05:47] LABS: BASOPHILS % (AUTO) 0.1 % (0-3); EOSINOPHILS % (AUTO) 2.6 % (0-5); MONOCYTES % (AUTO) 6.7 % (4-12); Mean Corpuscular Hemoglobin 26.5 pg (27.0-35.0); Mean Corpuscular Volume 86.5 fL (81-100); NEUTROPHILS % (AUTO) 63.6 % (40-74); Platelet Count 446 bil/L (150-400)
[2017-01-14] MEDS: 0.9% Sodium Chloride 1,000 ML IV SCH (07:48)
[2017-01-14] MEDS: Piperacillin-Tazo 3.375 Gm Inj 3.375 GM in Dextrose 5% Minibag Plus 50 ML IV SCH (08:22)
[2017-01-14] MEDS: Insulin LISPRO 300 Unit/3 mL Inj SUBQ SCH ×2 (08:24→12:11)
[2017-01-14] MEDS ORDERED: Omega-3 Fatty Acids 1,000 mg Capsule PO SCH (08:30)
[2017-01-14] MEDS ORDERED: GLUCOSAMINE HCL 1500 MG PO SCH (08:30)
[2017-01-14] MEDS: MeTOProlol XL 50 mg ER24 Tablet PO SCH (08:31)
[2017-01-14] MEDS: HYDROcodone-APAP 5-325 mg Tablet PO PRN ×2 (08:32→14:59)
--- NOTE | 2017-01-14 11:06 | PROG NOTE ---
[address] [address] PROGRESS NOTE PATIENT: ERYN MARTINEZ : 1950 MR#: [id number] ADMIT: 01/09/2017 JOB ID: [id number] DATE: 01/14/2017 INFECTIOUS DISEASE FOLLOW UP NOTE: REASON FOR FOLLOWUP: Diabetic foot infection with abscess and bone destruction requiring left TMA. INTERVAL HISTORY: The patient reports he feels fine. He has no fevers, chills or sweats. No cough, nausea, vomiting, diarrhea. Minimal pain left foot. Still in a bulky dressing, as applied by Podiatry. PHYSICAL EXAMINATION: Reveals an afebrile gentleman, temperature 36.7, pulse 64, respiratory rate 18, blood pressure 131/67. He is saturating well on room air and is in no acute distress. Examination of the lungs clear. Cardiac tones without murmur. Abdomen benign. The left foot in a bulky dressing. LABORATORIES: Include white count normal at 8400. The differential is normal. Creatinine 0.92. Liver function tests normal. Micro studies include the culture of the foot which is growing Proteus penneri. This is resistant to ampicillin and first generation cephalosporins but susceptible to other standard agents and exquisitely sensitive to quinolones as well as second and third generation cephalosporins. IMPRESSION: This patient clearly has had a very severe left diabetic infection which required a two-stage TMA. The surgeon is quite convinced that all visible infection was removed at the time of the TMA and our sole positive culture is for Proteus. There is no evidence either by MRSA swab of the nares nor culture from the pus obtained from the foot of staphylococcal infection. Out of an abundance of caution, I think we should proceed with a prolonged course of oral antibiotics. I do not think that the patient needs a PICC line, IV antibiotics and the attendant risks as we have no demonstrable evidence of ongoing infection but I think it is prudent to offer some extended coverage. RECOMMENDATIONS: 1. Cipro 500 b.i.d. x4 weeks. 2. Flagyl 500 b.i.d. x2 weeks. 3. I would like to see the patient in my clinic January 28. 4. ID will be signing off at this time as this patient is headed home today.
--- NOTE | 2017-01-14 13:38 | NUR ---
Social Work: Readiness for Discharge D: EMR reviewed. Pt is a 66 y/o male admitted for left foot gangrene, diabetes per H&P. ID has signed off pt, recommending outpt follow up and an oral course of Cipro and Flagyl for multiple weeks. Pt is likely to discharge later today, SW awaits discharge orders. Per Hospitalist, pt will follow up with Podiatry as an outpt for dressing changes. MD does not identify any needs at this time. SW met with pt and pt's brother at bedside regarding discharge plan. Pt owns crutches and a FWW. Pt was observed ambulating independently with a fww in his room. Pt's brother will provide transport home via POV. SW will continue to follow for discharge needs. A: Pt who is independent at baseline and who requires oral abx at discharge. P: Pt requires oral abx at discharge. Pt's brother will provide transport home via POV. No discharge need identified at this time, SW will continue to follow for discharge needs. Michelle Stanley [employer]
--- NOTE | 2017-01-14 14:10 | PCM.DIMED ---
Discharge Instructions Date of Service Jan 14, 2017 Dates of Hospitalization Jan 09, 2017 at 17:36 Discharge Diagnosis Discharge Diagnosis Diabetic foot infection left foot Diet Discharge Diet: Heart Healthy, Diabetic Activity Discharge Activity: Other (The patient is to use a walker until he will be able to obtain his scooter on 01/16/2017) Call your provider Call your provider for: Fever or Chills, Shortness of breath, Bleeding, Chest pain, Vomitting, Excessive diarrhea, Weakness (unilateral) Patient Instructions Follow-up Provider: Maria Diana DO Follow-up with PCP in: 2 weeks Provider: Yari Aviles DPM Follow-up in: 1 week (The patient is to see Dr. Aviles on 01/16/2017) Mid-level Provider (F9): Nito Jolly MD Follow-up with Mid-level in: 2 weeks Bladimir Lloyd MD Jan 14, 2017 14:10
[2017-01-14] MEDS ORDERED: POLY17PO6 PO (14:11)
[2017-01-14] MEDS ORDERED: CIPR-231 PO (14:18)
[2017-01-14] MEDS ORDERED: METR500T PO (14:18)
--- NOTE | 2017-01-14 14:28 | NUR ---
Social Work: Discharge D: EMR reviewed. Pt is a 66 y/o male admitted for left foot gangrene, diabetes per H&P. Pt to discharge today, discharge orders are active. Pt will use fww at home until he obtains his borrowed knee scooter on Thursday. Pt's brother will provide transport home via POV. No discharge needs identified. A: Pt who is independent at baseline and who requires oral abx at discharge. P: Pt will use fww at home until he obtains his borrowed knee scooter on Thursday. Pt's brother will provide transport home via POV. No discharge needs identified. Michlele Stanley MSW
--- NOTE | 2017-01-14 15:15 | NUR ---
discharged home with family, whom he will be staying with. He will have f/u appt on Thursday with Dr Aviles and f/u appts in 2 weeks with PCP and Dr Jolly. He has Rx for Flagyl, Cipro(both sent electronically to [facility]) and also Rx for Miralax. Pt is eating/drinking well. able to ambulate safetly non wt bearing. Good pain control. Dressing C/D/I
--- NOTE | 2017-01-14 23:39 | PCM.DC.MED ---
Discharge Summary Date of Service Jan 14, 2017 Dates of Hospitalization Date of Hospital Admission Jan 09, 2017 at 17:36 Date of Discharge: Jan 14, 2017 Providers: Admitting Physician: Bladimir Lloyd MD Primary Care Physician: Maria Diana DO Attending Physician: Bladimir Lloyd MD Diagnosis at Time of Discharge Diagnosis at Time of Discharge Diabetic foot infection left foot Consultations Dr. Jolly of infectious disease and Dr. Aviles of podiatry Brief History This is a pleasant 66-year-old male with a history of diabetes who presents with an extensive soft tissue infection of the left foot. He has been fighting this for 2 years since he initially stepped on a nail which punctured his big toe. He has been on intermittent antibiotics and had multiple debridements in the past with his survey research teacher. Ultimately this infection is spread across the entire span of the foot. Today he has had more redness laterally. He does have gangrene of the great toe and second toe from his report. He was seen by his survey research teacher today who recommended hospitalization for an emergent transmetatarsal amputation of the left foot. He does not have peripheral arterial disease and has good transcutaneous oximetry. He denies fevers or chills. His survey research teacher did request Zosyn in the interim. He does have some pain associated with this. He does have diabetes mellitus U, insulin-dependent which has been under reasonable control. No nausea. He has been somewhat constipated for 3 days. He did have global symptoms of myalgias and fatigue several days ago with see off for infection. These symptoms improved. The patient was admitted to the hospital service for further evaluation and treatment. Hospital Course As per Dr. Alex Macdonald's H&P: "This is a pleasant 66-year-old male with a history of diabetes who presents with an extensive soft tissue infection of the left foot. He has been fighting this for 2 years since he initially stepped on a nail which punctured his big toe. He has been on intermittent antibiotics and had multiple debridements in the past with his survey research teacher. Ultimately this infection is spread across the entire span of the foot. Today he has had more redness laterally. He does have gangrene of the great toe and second toe from his report. He was seen by his survey research teacher today who recommended hospitalization for an emergent transmetatarsal amputation of the left foot." The patient was admitted to the hospital service for further evaluation and treatment recommendations. #. Left foot soft tissue infection as well as osteomyelitis, present at the time of admission. Active - Continue Zosyn every 8 hours, while inpatient and then discharge home on an oral antibiotic regimen recommended by Dr. Jolly as follows: "RECOMMENDATIONS: 1. Cipro 500 b.i.d. x4 weeks. 2. Flagyl 500 b.i.d. x2 weeks. 3. I would like to see the patient in my clinic January 28. 4. ID will be signing off at this time as this patient is headed home" today. - Patient had drainage of abscesses in the left foot and is postop day #4 from that operation, with operating room cultures obtained. Patient underwent a left transmetatarsal amputation and is postop day #2 from that operation.. - I have consulted Dr. Jolly of infectious disease and appreciate his time and expertise. We will follow his recommendations. - Discussed with Dr. Aviles - We will restart home prescription with Plavix. #. Diabetes mellitus 2, present at the time of admission. - We will continue Lantus at 15 units, as patient, has not had much to eat, and will use correctional lispro. - We will continue with IV fluids. - We will check a CBC and CMP and magnesium level in a.m. #. Hypertension, present time of admission. Active. - Continue usual medications as at home, I have restarted them today Disposition: Patient to be discharged home today. Patient was cleared for discharge by Dr. Singh and Dr. Jolly Exam Vital Signs (Last) Date Time Temp Pulse Resp B/P Pulse Ox O2 Delivery O2 Flow Rate FiO2 01/14/17 04:25 36.7 64 18 131/67 99 Room Air Exam General: Patient appears to be in good spirits and in no distress. HEENT: Head is atraumatic and normocephalic. Eyes: Pupils are equally round and reactive to light and accommodation. Extraocular muscles are intact. Sclera are white, anicteric. Subconjunctival mucosa is pale. Ears and nose are unremarkable. Oropharynx: There is no mucosal lesions, there is no thrush, there is no pharyngitis. Mucosa is pale. Neck: Is supple, there are no nodes, or masses or tenderness. Chest: Is clear to auscultation and percussion. There are no rales, rhonchi, wheezes or rubs. Heart: Rate, rhythm is regular. There is no murmur, rub or gallop. Abdomen: Good bowel sounds are present. Abdomen is soft, nontender, no organomegaly or masses were appreciated. Extremities: The left lower extremity is in a postoperative wrap. TLS drain is in place. The dressing was clean dry and intact with no strike through bleeding. There are only 3 toes on the right foot the great toe and first toe are missing. Amputation sites are unremarkable. Neurologic: There are no focal neurological deficits. Cranial nerves II through XII are intact. There are no sensory or motor deficits. Psychiatric: Patients mood is calm and shows no sign of agitation. Genital: Deferred Rectal: Deferred Test 01/09/17 18:56 01/13/17 23:59 01/14/17 05:20 Hemoglobin A1c 9.5% (4.8-5.6) White Blood Count 8.4th/mm3 (3.8-10.1) Red Blood Count 3.10mil/mm3 (4.40-5.80) Hemoglobin 8.2g/dL (13.8-17.2) Hematocrit 26.8% (41.0-50.0) Mean Corpuscular Volume 86.5fL (81-100) Mean Corpuscular Hemoglobin 26.5pg (27.0-35.0) Mean Corpuscular Hemoglobin Concent 30.6% (32.0-37.0) Red Cell Distribution Width 13.3% (12.3-15.4) Platelet Count 446bil/L (150-400) Neutrophils (%) (Auto) 63.6% (40-74) Lymphocytes (%) (Auto) 26.8% (14-46) Monocytes (%) (Auto) 6.7% (4-12) Eosinophils (%) (Auto) 2.6% (0-5) Basophils (%) (Auto) 0.1% (0-3) Sodium Level 137mEq/L (134-144) Potassium Level 4.6mEq/L (3.5-5.2) Chloride Level 99mEq/L (97-108) Carbon Dioxide Level 26mmol/L (18-29) Blood Urea Nitrogen 11mg/dL (8-27) Creatinine 0.92mg/dL (0.76-1.27) Estimat Glomerular Filtration Rate 87mL/min (>59) Glucose Level 204mg/dL (60-99) Calcium Level 8.4mg/dL (8.5-10.1) Magnesium Level 2.0mg/dL (1.6-2.6) Total Bilirubin 0.2mg/dL (0.0-1.2) Aspartate Amino Transf (AST/SGOT) 11U/L (0-50) Alanine Aminotransferase (ALT/SGPT) 8U/L (0-44) Alkaline Phosphatase 123U/L (25-160) Total Protein 5.9g/dL (6.4-8.4) Albumin 3.2g/dL (3.4-5.0) Microbiology Results Name: ERYN MARTINEZ Age/Sex: 66/M Attend Dr: Bladimir Lloyd Acct: [id number] Unit: [id number] Status: ADM IN Location: [place] [address] Re01/09/17 Disch: Specimen: [id number] Collected: 01/10/17-UNK Status: RES Req#: [id number] Received: 01/10/17-1134 Source: TOE Sp Desc : Subm Dr: Yari Aviles DPM Ordered: CS & ANAC & GS Comments: Collected by Nurse/Unit? Y/N Y Comment: LEFT FOOT PARTIAL TRANSMETATARSAL AMPUTATION Procedure Result Verified Site Microbiology ANNA GS (GRAM STAIN) Final 01/10/171246 GRAM STAIN RESULT NO POLYS NO ORGANISMS SEEN ANNA CULT AEROBIC Preliminary 01/13/17105 PRELIMINARY ID GRAM NEG JESUS ALBERTO PROBABLE PROTEUS SPECIES ID AND SENS TO FOLLOW COLONY COUNT/QUANTITY SCANT GROWTH ANAEROBIC CULTURE Preliminary 01/13/171100 No ANAEROBES recovered at 48 hours hold for futher observation Discharge Medications Discharge Medications Aspirin (Aspirin) 81 Mg Tablet 81 MG PO BID (Reported) Atorvastatin Calcium (Atorvastatin Calcium) 40 Mg Tablet 40 MG PO DAILY ( Reported) Cholecalciferol (Vitamin D3) (Vitamin D3) 2,000 Unit Tablet 2,000 UNIT PO DAILY (Reported) Ciprofloxacin (Cipro) 500 Mg Tablet 500 MG PO BID Prescribed by: LARISA LLOYD MD Clopidogrel (Clopidogrel) 75 Mg Tablet 75 MG PO DAILY (Reported) Glucosamine HCl (Glucosamine HCl) 1,500 Mg Tablet 1,500 MG PO DAILY (Reported) Insulin Aspart (NovoLOG U100 Insulin Vial) 100 U/Ml U 10-15 SUBQ TIDWM (Reported ) Insulin Glargine (Lantus U100 Solostar Insulin Pen) 100 Unit/1 Ml Insuln.pen 25 UNITS SUBQ HS (Reported) Lisinopril (Lisinopril) 10 Mg Tablet 10 MG PO DAILY (Reported) Metoprolol Succinate ER (Metoprolol Succinate ER) 50 Mg Tab.er.24h 50 MG PO DAILY (Reported) Metronidazole (Flagyl) 500 Mg Tablet 500 MG PO BID Prescribed by: LARISA LLOYD MD Multivitamin (Multivitamins) 1 Each Capsule 1 EACH PO DAILY (Reported) Robinson-3/Dha/Epa/Fish Oil (Fish Oil 1,000 mg Softgel) 1 Each Capsule 1 EACH PO DAILY (Reported) As needed Polyethylene Glycol 3350 (Miralax) 17 Gm Powd.pack 17 GM PO DAILY PRN PRN For Constipation Prescribed by: LARISA LLOYD MD Psyllium Seed (with Sugar) (Metamucil Packet) 1 Each Packet 1 EACH PO DAILY PRN PRN For Constipation (Reported) Followup Plan Disposition: Patient is being discharged home in the care of his brother. Discharge Diet: Heart Healthy, Diabetic Discharge Activity: Other (The patient is to use a walker until he will be able to obtain his scooter on 01/16/2017) Follow-up Provider: Maria Diana DO Follow-up with PCP in: 2 weeks Provider: Yari Aviles DPM Follow-up in: 1 week (The patient is to see Dr. Aviles on 01/16/2017) Mid-level Provider: Nito Jolly MD Follow-up with Mid-level in: 2 weeks Time spent Time spent on discharging this patient was greater than 35 minutes, over half of which was involved in counseling and coordination of care. Bladimir Lloyd MD Jan 14, 2017 23:39
--- NOTE | 2017-01-15 10:36 | PATH ---
SURGICAL PATHOLOGY Attending Physician:Yari Aviles CASE STATUS: Signed Out PATIENT NAME: ERYN MARTINEZ PID: [id number] : 1950 DATE COLLECTED:01/10/2017 00:00 SPECIMEN: Bone, Biopsy CLINICAL HISTORY: INFECTED LEFT FOOT 1. LEFT FOOT TRANSMETATARSAL PARTIAL FINAL DIAGNOSIS: 1.LEFT FOOT TRANSMETATARSAL PARTIAL AMPUTATION SPECIMEN: SEVERE ACUTE AND CHRONIC INFLAMMATION INVOLVING SKIN AND SOFT TISSUE WITH EXTENSIVE ULCERATION AND SOFT TISSUE COAGULATION NECROSIS. MULTIPLE AREAS OF PARTIAL BONE NECROSIS WELL AREAS OF OSTEOMYELITIS. SECTIONS OF THE INKED RESECTION MARGIN REVEAL CHRONIC INFLAMMATION AND FIBROSIS, BUT THE TISSUE APPEARS VIABLE. ICD10 M86.372 GROSS DESCRIPTION: The specimen is received in formalin, labeled with the patient's name, sublabeled as left foot transmetatarsal, and consists of toes #2-#5 of a left foot (8.5 cm AP, 2.4 cm SI, 8.6 cm ML) and multiple pieces of bone with articular surfaces (5.3 x 3.5 x 2.0 cm in aggregate). Toes #2 and #3 are detached and #4 and #5 are connected by skin and soft tissue. The toenail is absent from toe #2 with the remaining toes with toenails. The skin is le-pink smooth and shiny and contains multiple crusted over ulcers (0.5 x 0.3 cm-1.2 x 0.6 cm) involving toes #4 and #5. The ulcers are 1.4 cm from the skin of soft tissue resection margins. Toes #2 and #5 are easily sliced with a scalpel and #3 and #4 are not. The separate pieces of bone are hard and cannot be sliced with a scalpel. Ink code: black-superior; orange-inferior; purple-resection margin. Section code: (A) skin and soft tissue resection margins, sales representative wire rope; (B) ulcers, sales representative wire rope; (C-F) toes #2-#4, serially sectioned, representatives submitted in sequential order; (G-I) pieces of bone, resection margins. Note: The bone sections have been decalcified. 01/13/17 JM MICRO DESCRIPTION: See diagnosis. ICD-9 CODES: CPT CODES: 1: 93477, 01776 Electronically Signed Out New Badillo MD [facility] [address], [place] [address] Technical component performed at [facility], [address], [place], [address]
--- NOTE | 2017-01-15 10:41 | PATH ---
SURGICAL PATHOLOGY Attending Physician:Yari Aviles CASE STATUS: Signed Out PATIENT NAME: ERYN MARTINEZ PID: [id number] : 1950 DATE COLLECTED:01/11/2017 00:00 SPECIMEN: Bone, Biopsy CLINICAL HISTORY: LEFT FOOT AMPUTATION OPEN ACHILLES CONTRACTURE, PLEASE EVALUATE CUT MARGINS FOR OSTEOMYELITIS 1. LEFT FOOT REMAINDER OF TRANSMETATARSAL AMPUTATION FINAL DIAGNOSIS: 1.LEFT FOOT REMAINDER OF TRANSMETATARSAL AMPUTATION SPECIMEN: FOCAL AREAS OF BONE NECROSIS WITH PROMINENT AREAS OF NEW BONE FORMATION. FOCAL AREAS OF MINIMAL OSTEOMYELITIS. RESECTION MARGIN NEGATIVE FOR EVIDENCE OF OSTEOMYELITIS. ICD10 M86.372 GROSS DESCRIPTION: The specimen is received in formalin, labeled with the patient's name, sublabeled as left foot, remainder of transmetatarsal amputation, and consists of a resected toe (9.0 cm AP, 3.7 cm SI, 3.2 cm ML) and multiple pieces of bone (4.5 x 4.2 x 2.0 cm in aggregate). The toenail is present. The skin is akbar-pink smooth and shiny. No nodules, masses or lesions are identified. The proximal bone is easily sliced with a scalpel and has a akbar-cade porous cut surface. The distal bone is hard and cannot be sliced with a scalpel. One piece of bone is easily sliced with a scalpel and the other 2 are hard and cannot be sliced with a scalpel. Ink code: black-superior; orange-inferior; purple-resection margin. Section code: (A) skin and soft tissue resection margins, public health representative; (B) bone resection margin; (C) toe, serially sectioned, distal bone public health representative; (D-E) easily sliced piece of bone, resection margins; (F, G) remaining pieces of bone, resection margins. Note: The bone sections have been decalcified. 01/13/17 JM MICRO DESCRIPTION: See diagnosis. ICD-9 CODES: CPT CODES: 1: 82268, 48621 Electronically Signed Out New Badillo MD [facility] Pathology [facility] [address] [facility], [place] [address] Technical component performed at [facility], [address] [place] [address] Ave[address], [address]
== END 2017-01-14 15:07 | disposition home or self-care (01) | DRG 240 ==
LOC: ORA 17:35 → OSC 17:36
PROVIDERS: ADMIT Internal Medicine Infectious Disease; ATTEND Hospitalist
PROC: 0Y6N0ZD Detachment at Left Foot, Partial 4th Ray, Open Approach (ICD-10-PCS; 2017-01-10)
PROC: 0Y6N0ZF Detachment at Left Foot, Partial 5th Ray, Open Approach (ICD-10-PCS; 2017-01-10)
PROC: 0Y6N0ZB Detachment at Left Foot, Partial 2nd Ray, Open Approach (ICD-10-PCS; 2017-01-11)
PROC: 0Y6N0ZC Detachment at Left Foot, Partial 3rd Ray, Open Approach (ICD-10-PCS; 2017-01-11)
PROC: 0Y6N0Z9 Detachment at Left Foot, Partial 1st Ray, Open Approach (ICD-10-PCS; principal; 2017-01-11 09:00)
DX: E11.52 Type 2 diabetes mellitus with diabetic peripheral angiopathy with gangrene (principal); M86.9 Osteomyelitis, unspecified; L02.612 Cutaneous abscess of left foot; I10 Essential (primary) hypertension; E11.319 Type 2 diabetes mellitus with unspecified diabetic retinopathy without macular edema; I25.10 Atherosclerotic heart disease of native coronary artery without angina pectoris; E11.42 Type 2 diabetes mellitus with diabetic polyneuropathy; B96.4 Proteus (mirabilis) (morganii) as the cause of diseases classified elsewhere; Z16.11 Resistance to penicillins; Z16.19 Resistance to other specified beta lactam antibiotics; Z79.4 Long term (current) use of insulin